=== PATIENT | male | born 1960 | race Hispanic/Latino ===

== ENCOUNTER 2017-07-06 20:35 | Inpatient (IN) | payer MEDICARE ==
[~2017-07-06 20:35] MED LIST: Iopamidol 370 76% 50 ML VIAL FS ONE
--- OUTSIDE RECORDS SUMMARY | 2017-07-06 20:38 | XMS | Clinical Summary ---
:1960 Author Organization [facility] Address [address] [place] [address] Phone Care Team Providers Name Role Phone , Primary Care Provider Unavailable Allergies No Known Allergies Current Medications Prescription Sig. Disp. Refills Start Date End Date Status aspirin 81 MG EC tablet Take 81 mg by mouth Active daily. carvedilol (COREG) 25 MG Take 25 mg by mouth Active tablet 2 (two) times daily with breakfast and dinner. omega-3 fatty Take by mouth. Active acids-vitamin E 1,000 mg Cap amLODIPine (NORVASC) 5 Take 5 mg by mouth Active MG tablet daily. prasugrel (EFFIENT) 10 Take 10 mg by mouth Active mg Tab tablet daily. omeprazole (PRILOSEC) 20 Take 20 mg by mouth Active MG capsule daily. fLUoxetine (PROZAC) 20 Take 20 mg by mouth Active MG capsule daily. colesevelam (WELCHOL) Take 1,875 mg by Active 625 mg tablet mouth 2 (two) times daily with breakfast and dinner. ezetimibe-simvastatin Take 1 tablet by Active (VYTORIN) 10-10 mg per mouth nightly. tablet VIT#96/FERROUS Take 1 tablet by Active FUM/FA ( VITAMIN mouth daily. W/IRON-FOLATE) 27 mg iron- 800 mcg Tab Active Problems Not on file Social History Tobacco Use Types Packs/Day Years Used Date Never Assessed Sex Assigned at Date Recorded Not on file Last Filed Vital Signs Not on file Plan of Treatment Not on file Results Not on filefrom Last 3 Months
[2017-07-06] MEDS ORDERED: Fentanyl 100 MCG/2 ML VIAL ONE ×3 (21:09→23:21)
[2017-07-06 21:31] LABS: #Eosinphils 0.1 thou/uL (0.0-0.7); #Lymphocytes 1.5 thou/uL (1.20-3.40); #Monocytes 0.4 thou/uL (0.11-0.59); #Neutrophils 4.6 thou/uL (1.40-6.50); %Basophils 0.4 % (0.0-1.0); %Eosinophils 2.1 % (0.0-10.0); %Lymphocytes 21.8 % (21.0-51.0); %Monocytes 5.9 % (0.0-10.0); Hematocrit 38.2 % (42.0-52.0); Mean Platelet Volume 8.1 fL (7.4-10.4); Red Blood Cell (RBC) Count 4.05 mill/uL (4.70-6.10); White Blood Cell (WBC) Count 6.6 thou/uL (4.8-10.8)
[2017-07-06 21:38] LABS: PTT 36.8 SEC (22.9-36.1); Prothrombin Time 14.5 SEC (12.0-14.7)
[2017-07-06 21:50] LABS: Lactic Acid - Sepsis 1.6 mmol/L (0.5-2.2)
[2017-07-06 21:53] LABS: ALT (SGPT) 71 U/L (8-55); AST (SGOT) 40 U/L (5-34); Alkaline Phosphatase 270 U/L (40-150); Anion Gap 21 mmol/L (10-20); BUN (Urea Nitrogen) 23 mg/dL (8.4-25.7); Bilirubin, Total 0.7 mg/dL (0.2-1.2); Calc. Creatinine Clearance 0 mL/min (70-130); Calcium 9.8 mg/dL (7.8-10.44); Carbon Dioxide 31 mmol/L (22-29); Chloride 87 mmol/L (98-107); Estimated GFR-MDRD 12; Globulin 5.2 g/dL (2.4-3.5); Protein, Total 9.6 g/dL (6.0-8.3)
--- NOTE | 2017-07-06 23:11 | CT ---
CT ABDOMEN AND PELVIS WITHOUT CONTRAST 07/06/17 HISTORY: Umbilical hernia. COMPARISON: None. FINDINGS: The lung bases are clear. No pericardial effusion. There is a moderate volume free fluid in the pelv is. There is a small bowel containing right ventral hernia adjacent to the umbilicus. This causes a proximal small bowel obstruction. The proximal small bowel loops are dilated to just under 3 cm. Moderate diverticular disease of the sigmoid colon without active inflammation. The appendix is visu alized and is normal. Moderate vascular plaque throughout the aortoiliac system. Kidneys are atrophi c suggesting chronic renal disease. Prior cholecystectomy changes. Moderate thickening of the gastric antrum and pylorus. The pancreas i s unremarkable. IMPRESSION: 1. Small bowel containing ventral hernia just to the right side and craniad to the umbilicus ca using a mild proximal small bowel obstruction. 2. Moderate ascites may be sequela of renal disease or portal hypertension as there is mild spl enomegaly. Transudation of fluid from breakdown of small bowel wall is also in the differential thou gh felt less likely. Recommend correlation with the patient's symptomatology. Surgical consultation is advised. 3. The ingested contrast does not progress beyond the level of the paraumbilical hernia. POS: [facility]
[2017-07-07] MEDS ORDERED: Bupivacaine/Epinephrine 0.25% 30 ML VIAL ONE (00:08)
[2017-07-07] MEDS ORDERED: HumaLOG 300 UNITS/3 ML VIAL SC PRN (00:34)
[2017-07-07] MEDS ORDERED: Dextrose 5% in Water 1,000 ML IV PRN (00:34)
[2017-07-07] MEDS ORDERED: Dextrose 50% Abboject 50 ML SYRINGE SLOW IVP PRN (00:34)
[2017-07-07] MEDS ORDERED: Fentanyl 100 MCG/2 ML VIAL ONE (00:35)
[2017-07-07] MEDS ORDERED: PHENYLEPHRINE-NS 100 MCG/ML 10 ML SYRINGE ONE (00:59)
[2017-07-07] MEDS ORDERED: Ketorolac Tromethamine 30 MG/ML VIAL ONE (00:59)
[2017-07-07] MEDS ORDERED: Ondansetron HCl/PF 4 MG/2 ML Vial ONE (00:59)
[2017-07-07] MEDS ORDERED: Lidocaine 2% MPF 10 ML AMP (For Epidural Use) ONE (00:59)
[2017-07-07] MEDS ORDERED: Propofol 200 MG/20 ML VIAL ONE (00:59)
[2017-07-07] MEDS ORDERED: ePHEDrine/0.9% NaCl/PF SYRINGE 50 mg/10 ml ONE (00:59)
[2017-07-07] MEDS ORDERED: Succinylcholine Chloride 20 MG/ML 10 ml SYRINGE FS ONE (00:59)
--- NOTE | 2017-07-07 02:12 | HP ---
DATE OF ADMISSION: 07/07/2017 HISTORY OF PRESENT ILLNESS: This is a 56-year-old man with a history of end-stage renal disease on hemodialysis. The patient had a preexisting umbilical hernia, which has been there for several year s. This hernia is usually reducible by the patient, however, approximately 6 to 7 hours ago, the pa tient was helping a friend with a move, might have lifted some weight and soon after felt some pain in his abdomen. This pain is now associated with a nonreducible hernia. After multiple attempts by the patient, he was brought to the emergency department by his . He is complaining of severe a bdominal pain. He received intravenous analgesics by the emergency room physician who attempted to reduce the hernia again without success. At the time of my evaluation, the patient remains awake an d alert. He is complaining about 6/10 abdominal pain, just received some fentanyl. CT scan of the abdomen and pelvis was obtained with oral contrast, which reveals an incarcerated hernia at the leve l of the umbilicus. The patient denies any nausea or vomiting. He denies any fevers or chills. He does not recall the last time he passed gas. PAST MEDICAL HISTORY: Significant for type 2 diabetes mellitus; coronary arterial disease; peripher al vascular disease; end-stage renal disease on dialysis Saturday, , and Saturday; essential hypertension; diabetic neuropathy, and liver cirrhosis. PAST SURGICAL HISTORY: Significant for right midfoot amputation and left foot digital amputation. Other surgical history includes laparoscopic cholecystectomy in 1994, right arm AV fistula for dialy sis. Cardiac catheterization with the placement of 2 stents in 2011 as well as a defibrillator impl antation in 2014. He also had transjugular right heart catheterization with the endomyocardial biop sy in 2016 as well as a transjugular liver biopsy in 2016. SOCIAL HISTORY: The patient is and disabled. He lives at home with his . He has a rem ote history of alcohol abuse. Does not indulge currently. Denies any cigarette smoking or illicit drug abuse. CURRENT MEDICATIONS: Includes carvedilol 25 mg p.o. b.i.d., omega-3 fatty acid 2000 mg p.o. b.i.d., digoxin 0.125 mg every other day, aspirin 81 mg p.o. daily, amlodipine 10 mg p.o. daily, omeprazole 20 mg p.o. daily, cinnamon 1000 mg p.o. b.i.d., losartan 50 mg p.o. daily, and atorvastatin 20 mg p .o. daily. ALLERGIES: ANCEF, ZITHROMAX and LISINOPRIL. REVIEW OF SYSTEMS: Ten-point review of systems essentially unremarkable except for as stated in pas t medical history and chief complaint. PHYSICAL EXAMINATION: GENERAL: This reveals a 56-year-old normally developed man, who is otherwise coherent and interacti ve, appears stated age. The patient is alert and oriented x3, appears to be in moderate acute distr ess secondary to abdominal pain. He did have a bout of episodic bilious emesis during this evaluati on. VITAL SIGNS: Include blood pressure 135/60, pulse is 65, respirations 16, oxygen saturation is 100% on room air. HEENT: Reveals normocephalic and atraumatic. Pupils are equal, round, and reactive to light and ac commodation. Extraocular muscles are intact bilaterally. He has no sclerae icterus present. Oral mucosa is pink and moist. No lesions are noted. NECK: Supple. No palpable lymphadenopathy or thyromegaly present. HEART: Reveals regular rate with a 2/6 systolic murmur auscultated in the left sternal border. LUNGS: Clear to auscultation bilaterally. Breathing is regular and unlabored. ABDOMEN: Soft, moderately distended. He has 5 x 7 cm nonreducible bulge right lateral to the umbil icus. This is exclusively tender even with slight manipulation. There is erythema of the overlying skin present. No gross peritoneal signs noted. Liver and spleen are nonpalpable below costal jayesh ins. EXTREMITIES: Reveal 2+ radial and pedal pulses bilaterally. Healed right midfoot and left foot dis devi amputation wounds noted. Right arm AV fistula has a palpable thrill. NEUROLOGIC: Reveals no focal deficits present. LABORATORY FINDINGS: Today includes a CBC with 6600 white blood cells, hemoglobin 12.5, hematocrit is 38.2, platelet count is 164,000. PTT and INR noted at 36.8 seconds and 1.1 respectively. Metabo lic profile: Sodium 134, potassium is 4.6, chloride is 87, BUN 23, creatinine is 5.17, glucose 182. Lactic acid 1.6, AST and ALT marginally elevated at 40 and 71 respectively. Alkaline phosphatase is also elevated at 270. I have personally reviewed the CT scan of the abdomen and pelvis, which re veals an incarcerated umbilical hernia with entrapment of a short segment of small bowel. The oral contrast does not pass the hernia site. Also noted is abdominal ascites. IMPRESSION: Acute incarcerated umbilical hernia with small-bowel obstruction. Recommendation is ur gent umbilical herniorrhaphy. I have advised the patient and his of the above findings and rec ommendations. I have also advised them of the risks and benefits of the proposed surgery. Risks in clude, but not limited to bleeding, infection, injury to bowel or surrounding structures. The patie nt and his understand that there is possibility of small bowel resection if the incarcerated sm all bowel is strangulated, given it has been over 6 hours since the acute incarceration. The patient and his indicated understanding of information given. I answered their questions. The patient has granted consent for this admission and surgical intervention in the presence of his nurse.
[2017-07-07] MEDS ORDERED: Promethazine HCl 25 MG/ML VIAL SLOW IVP PRN (02:21)
[2017-07-07] MEDS ORDERED: Morphine Sulfate 2 MG/ML SYRINGE SLOW IVP PRN (02:21)
[2017-07-07] MEDS ORDERED: Ondansetron HCl/PF 4 MG/2 ML Vial IVP PRN (02:21)
[2017-07-07] MEDS ORDERED: Promethazine HCl 25 MG/ML VIAL IM PRN (02:21)
[2017-07-07] MEDS ORDERED: Ibuprofen 600 MG TAB PO PRN (03:03)
[2017-07-07] MEDS ORDERED: traMADol HCl 50 MG TAB PO PRN (03:03)
[2017-07-07 05:31] VITALS: BMI 28.8
--- NOTE | 2017-07-07 07:25 | OP ---
DATE OF OPERATION: 07/06/2017 PREOPERATIVE DIAGNOSIS: Acute incarcerated umbilical hernia with small-bowel obstruction. POSTOPERATIVE DIAGNOSIS: Acute incarcerated umbilical hernia with small-bowel obstruction. SURGEON: Dr. Carlos Rojas. ANESTHESIA: General endotracheal. ESTIMATED BLOOD LOSS: 10 mL. FLUIDS GIVEN: 400 mL crystalloids. SPONGE AND INSTRUMENT COUNT: Certified as correct x2. COMPLICATIONS: None apparent at time of operation. OPERATIONS PERFORMED: Repair of incarcerated umbilical hernia with 11.4 x 11.[address] m esh patch. INDICATIONS FOR OPERATION: This is a 56-year-old man with history of end-stage renal disease on opal lysis, diabetes mellitus, and previously reducible umbilical hernia. The patient was helping friend to move heavy objects today when he suddenly felt abdominal pain associated with nonreducible umbil ical hernia. After multiple attempts to reduce this without success, the patient presented to the e mergency department. He was given IV fentanyl and the emergency medicine physician attempted multip le times to reduce the hernia again without success. I was asked to evaluate the patient. A CT sca n of the abdomen and pelvis revealed an incarcerated umbilical hernia with trapped small bowel. Ora l contrast did not pass through the hernia. The patient was brought to the operating room urgently for umbilical hernia repair. FINDINGS: Consistent with incarcerated, but not strangulated umbilical hernia. An 8 cm segment of small bowel was entrapped into the large hernia sac over a small hernia neck. DESCRIPTION OF OPERATION: Informed consent obtained from the patient who was brought to the operati ng room and placed in supine position. Following general anesthesia, a Gay catheter was inserted and placed to bedside drain. Abdomen is sterilely prepped and draped in the usual fashion. A curvi linear infraumbilical incision is made using a 15 scalpel. The incision was carried down to the lev el of the fascia. This was achieved using cautery with good hemostasis. The large hernia sac was d issected free from surrounding structures down to the level of viable fascia. The umbilical stalk w as then dissected off the hernia sac. Care was taken to avoid inadvertent injury to bowel once the umbilical stalk was lifted off the hernia sac. The hernia sac was then opened and a 8 cm of incarce rated small bowel was encountered initially with a bowel appeared dusky, but once freed within 3 min utes of opening of the hernia sac. There was good peristalsis and the bowel was now pink. This was then reduced into the peritoneal cavity. Total 100 mL of straw-colored ascites was evacuated from the peritoneal cavity. The hernia sac was then circumferentially excised from [place] fascia and pas sed off the operative field to Pathology. We then brought into the operative field. An 11.4 x 11.[address] patch, which was secured to the [place] fascia circumferentially using inte rrupted sutures of 0 Prolene with 2 cm overlay. The fascia was then approximated in midline using i nterrupted sutures of 0 Prolene. Subcutaneous tissues were irrigated clear with saline, perfected h emostasis using thermocautery. The umbilical stalk was reattached to the [place] fascia using interr upted sutures of 3-0 Vicryl. Skin incision was then closed using a running stitch of 3-0 Monocryl s uture in subcuticular fashion. Dermabond was applied over the closure. The patient tolerated the o peration without any apparent complication and was returned to the recovery room in satisfactory con dition.
[2017-07-07] MEDS: Sodium Chloride 0.9% 1,000 ML IV SCH (07:55)
--- NOTE | 2017-07-07 10:12 | RAD ---
CHEST 1 VIEW: Date: 07/07/17 HISTORY: Chest and abdomen pain. COMPARISON: 03/02/09. FINDINGS: Cardiac silhouette is magnified by projection. Shallow inspiration accentuates pulmonary markings. M ediastinum is midline with aortic calcification and a single lead left subclavian cardiac electronic device. No lobar consolidation or pneumothorax are apparent. There are degenerative changes of each shoulder. IMPRESSION: Atherosclerosis. POS: [facility]
[2017-07-07] MEDS ORDERED: Amlodipine 10 MG TAB PO SCH (12:45)
[2017-07-07] MEDS ORDERED: Carvedilol 25 MG TAB PO SCH (12:45)
[2017-07-07] MEDS: traMADol HCl 50 MG TAB PO PRN ×2 (13:19→21:51)
[2017-07-07] MEDS ORDERED: Aspirin 81 mg Enteric Coated Tablet PO SCH (21:00)
[2017-07-07] MEDS ORDERED: Atorvastatin Calcium 20 MG TAB PO SCH (21:00)
[2017-07-07] MEDS: Carvedilol 25 MG TAB PO SCH (21:51)
[2017-07-08] MEDS: Sodium Chloride 0.9% 1,000 ML IV SCH (07:57)
[2017-07-08] MEDS ORDERED: Losartan 25 MG TAB PO SCH (09:00)
[2017-07-08] MEDS ORDERED: Amlodipine 10 MG TAB PO SCH (09:00)
[2017-07-08] MEDS ORDERED: Digoxin 0.125 MG TAB PO SCH (09:00)
[2017-07-08] MEDS: Carvedilol 25 MG TAB PO SCH (12:27)
[2017-07-08] MEDS: traMADol HCl 50 MG TAB PO PRN (12:58)
[2017-07-08 17:09] VITALS: BP 128/68; TEMP 97.8
--- NOTE | 2017-08-10 15:26 | EKG ---
Test Reason : Blood Pressure : / mmHG Vent. Rate : 064 BPM Atrial Rate : 064 BPM P-R Int : 188 ms QRS Dur : 104 ms QT Int : 410 ms P-R-T Axes : 011 007 070 degrees QTc Int : 422 ms Normal sinus rhythm Left ventricular hypertrophy with repolarization abnormality Abnormal ECG Confirmed by SHARI HOLLOWAY D.O. ([id number]), technical writer and editor KIEL COELLO ([id number]) on 08/10/2017 3:25:57 PM Referred By: Confirmed By:SHARI HOLLOWAY D.O.
== END 2017-07-08 17:20 | disposition home or self-care (01) | DRG 353 ==
LOC: ERS 20:35 → SURG B 07-07 00:50
PROVIDERS: ADMIT Surgery; ATTEND Surgery
PROC: 0WUF0JZ Supplement Abdominal Wall with Synthetic Substitute, Open Approach (ICD-10-PCS; principal; 2017-07-07)
PROC: 0W9G0ZZ Drainage of Peritoneal Cavity, Open Approach (ICD-10-PCS; 2017-07-07)
DX: K42.0 Umbilical hernia with obstruction, without gangrene (principal); N18.6 End stage renal disease; R18.8 Other ascites; I12.0 Hypertensive chronic kidney disease with stage 5 chronic kidney disease or end stage renal disease; I25.10 Atherosclerotic heart disease of native coronary artery without angina pectoris; E11.22 Type 2 diabetes mellitus with diabetic chronic kidney disease; Z99.2 Dependence on renal dialysis; E11.40 Type 2 diabetes mellitus with diabetic neuropathy, unspecified; I73.9 Peripheral vascular disease, unspecified; K74.60 Unspecified cirrhosis of liver
CPT/HCPCS: 36416; 71010; 74176; 80053; 83605; 85025; 85610; 85730; 88302; 93005; 96374; 96376; J1885; J2001; J2405; J2704; J3010; J3370

== ENCOUNTER 2017-07-13 05:49 | Emergency (ER) | payer MEDICARE ==
--- OUTSIDE RECORDS SUMMARY | 2017-07-13 05:51 | XMS | Clinical Summary ---
:1960 Author Organization [facility] Address [address] [place] [address] Phone Care Team Providers Name Role Phone [...]
== END 2017-07-13 06:37 | disposition home or self-care (01) ==
LOC: ERS 05:49
DX: K91.840 Postprocedural hemorrhage of a digestive system organ or structure following a digestive system procedure (principal); I13.2 Hypertensive heart and chronic kidney disease with heart failure and with stage 5 chronic kidney disease, or end stage renal disease; E11.22 Type 2 diabetes mellitus with diabetic chronic kidney disease; N18.6 End stage renal disease; I50.9 Heart failure, unspecified; Z99.2 Dependence on renal dialysis; Z79.899 Other long term (current) drug therapy; Z79.82 Long term (current) use of aspirin
CPT/HCPCS: 99283

== ENCOUNTER 2017-07-16 14:00 | Emergency (ER) | payer MEDICARE ==
[2017-07-16 15:46] LABS: #Eosinphils 0.1 thou/uL (0.0-0.7); #Lymphocytes 0.7 thou/uL (1.20-3.40); #Monocytes 0.4 thou/uL (0.11-0.59); #Neutrophils 3.3 thou/uL (1.40-6.50); %Basophils 1.1 % (0.0-1.0); %Eosinophils 1.6 % (0.0-10.0); %Monocytes 8.5 % (0.0-10.0); Hematocrit 33.4 % (42.0-52.0); Mean Platelet Volume 7.5 fL (7.4-10.4); Red Blood Cell (RBC) Count 3.55 mill/uL (4.70-6.10); White Blood Cell (WBC) Count 4.4 thou/uL (4.8-10.8)
--- OUTSIDE RECORDS SUMMARY | 2017-07-16 15:54 | XMS | Clinical Summary ---
:1960 Author Organization [facility] Address [address] [place] [address] Phone Care Team Providers Name Role Phone [...]
[2017-07-16 16:05] LABS: Lactic Acid - Sepsis 1.1 mmol/L (0.5-2.2)
[2017-07-16 16:07] LABS: Anion Gap 13 mmol/L (10-20); BUN (Urea Nitrogen) 22 mg/dL (8.4-25.7); Calc. Creatinine Clearance 0 mL/min (70-130); Calcium 8.8 mg/dL (7.8-10.44); Carbon Dioxide 36 mmol/L (22-29); Chloride 92 mmol/L (98-107); Estimated GFR-MDRD 11
[2017-07-16] MEDS ORDERED: Fentanyl 100 MCG/2 ML VIAL ONE (16:07)
[2017-07-16] MEDS ORDERED: Lorazepam 2 MG/ML VIAL ONE (16:07)
--- NOTE | 2017-07-16 22:03 | HP ---
HISTORY OF PRESENT ILLNESS: Blue Vaughn is a 56-year-old male patient, who I saw in 2012, establis taylor a right arm fistula for dialysis. The patient apparently reported in the emergency room at mid night to 01:00 and underwent, on 07/07/2017 at 0200 hours, incarcerated umbilical hernia repair. Ap parently, there was small bowel involved. Once released, the bowel regained viability and resection was not necessary. The patient underwent mesh repair of his hernia with preperitoneal reinforcemen t of the fascial closure. The patient developed some swelling about his wound. He presented to his primary care doctor who was concerned about recurrent hernia. The patient then was sent to the [facility] to follow up with Dr. Rojas, who is out of town on a mission trip. The patient was to be seen at apparently 02:00 in the afternoon, but they more concerned about the appearance of the supr aumbilical wound and presented to the emergency room. He was evaluated by the emergency room physic frances, who attempted reduction of a possible hernia. I was asked to see him. The patient reports that he is not having any nausea or vomiting, he has not had any fever or chills . Bowel function is normal. He has end-stage renal disease on maintenance dialysis using a right a rm fistula. He has issues regarding cirrhosis. LABORATORY DATA: Hemoglobin 11, white count 4. Basic metabolic profile unremarkable except reflect ing changes of end-stage renal disease on maintenance dialysis. PHYSICAL EXAMINATION: GENERAL: The patient is in no distress. LUNGS: Clear to auscultation. CARDIAC: Regular rate and rhythm without murmur or gallop. ABDOMEN: Soft, nondistended, non-tympanitic. Infraumbilical transverse curvilinear scar well heale d. No evidence of infection. There is some fullness in the supraumbilical area approximately 8 cm in diameter consistent with a seroma. There are no skin changes to suggest an infection. There is no cellulitis. ASSESSMENT AND PLAN: Postoperative seroma. We will observe this. At this time, I do not think binh ging is necessary. I would treat this clinically. There are no clinical signs of obstruction. Thi s seroma most likely will resolve and I would not recommend aspirating it. I would recommend the pa darion to follow up with Dr. Rojas per his schedule appointment time and if he develops problems he c an be seen in my office sooner. At this point, he can be discharged home to resume his home medicat ions and follow up in the trauma clinic on 07/23/2017 and see me sooner if necessary.
== END 2017-07-16 17:40 | disposition home or self-care (01) ==
LOC: ERS 14:00
DX: K91.872 Postprocedural seroma of a digestive system organ or structure following a digestive system procedure (principal); E11.22 Type 2 diabetes mellitus with diabetic chronic kidney disease; N18.6 End stage renal disease; I50.9 Heart failure, unspecified; Z79.899 Other long term (current) drug therapy; Z79.82 Long term (current) use of aspirin
CPT/HCPCS: 36415; 80048; 83605; 85025; 96374; 96375; J2060; J3010

== ENCOUNTER → 2017-07-23 | Day surgery (SDC) | payer MEDICARE ==
[2017-07-22 16:44] VITALS: BMI 30.7
--- NOTE | 2017-07-22 22:03 | HP ---
HISTORY OF PRESENT ILLNESS: Blue Vaughn, 56-year-old male patient seen for an incarcerated umbilic al hernia with Dr. Rojas on 07/07/2017 and undergoing open repair utilizing mesh 11.4 x 11[address] mesh patch. Patient initially seen in the emergency room with 2-3 days postoperatively suspe cted to have recurrent hernia with attempted reduction which was not possible. I saw him after that and he was seen in the office, recently had 60 mL of fluid aspirated from seroma. He was leaking fro m the lower right corner. He reports today and has recurrence of the seroma. Plan is to return to [facility] operating [facility], open the wound, wash this out and place a drain. The drainage was serous in [facility] last visit. It was not cultured. He has a history of cirrhosis. ALLERGIES: AZITHROMYCIN and LISINOPRIL. TOBACCO: None. ALCOHOL: None. PAST MEDICAL HISTORY: Diabetes mellitus type 2, coronary artery disease, PVD, end-stage renal diseas e, on dialysis, in fact I had provided his dialysis access fistula in the past; hypertension, diabeti c neuropathy, liver cirrhosis. He is followed by Dr. Kushal Arthur, Nephrology. I talked to Nephro luis enrique last week regarding administration of vancomycin and this has not been done today. They state erika bullock will do this in the morning. After he is finished with his dialysis in the morning, he will repo rt for surgery as an outpatient n.p.o. PAST MEDICAL HISTORY: Alcohol abuse. TOBACCO: None. MEDICATIONS: Carvedilol 25 b.i.d., omega 3 fatty acids 200 b.i.d., digoxin 0.125 mg every other day, aspirin 81 mg, amlodipine 10 mg a day, omeprazole 20 mg a day, cinnamon daily, losartan 50 mg daily, and atorvastatin 20 mg a day. PHYSICAL EXAMINATION: VITAL SIGNS: 220 pounds, 71 kg, 37.79 BMI, 124/60, 71, temperature 97.7 degrees. HEENT: Unremarkable. LUNGS: Clear to auscultation. CARDIAC: Regular rate and rhythm without murmur or gallop. ABDOMEN: Soft. He has a curvilinear transversely oriented infraumbilical wound. There is a seroma reaccumulation superiorly. There is no redness or signs of infection. ASSESSMENT AND PLAN: Seroma in a patient with cirrhosis, end-stage renal disease on maintenance dial ysis. We will plan irrigation of wound and placement of drain. He understands the risks and benefit s.
[~2017-07-23] MED LIST changes: +Bupivacaine/Epinephrine 0.25% 30 ML VIAL ONE; +Diprivan 20 ML ONE; +Fentanyl 100 MCG/2 ML VIAL ONE; -Iopamidol 370 76% 50 ML VIAL FS ONE; +Lidocaine 2% w/Epinephrine 1:200K 20 ML VIAL ONE; +Midazolam HCl 2 mg/2 ml Vial ONE; +Propofol 200 MG/20 ML VIAL ONE
[2017-07-23 11:37] LABS: Hematocrit 34.4 % (42.0-52.0); Mean Platelet Volume 8.4 fL (7.4-10.4); Red Blood Cell (RBC) Count 3.68 mill/uL (4.70-6.10); White Blood Cell (WBC) Count 5.9 thou/uL (4.8-10.8)
[2017-07-23 11:56] LABS: Band 4 % (5-11); Neutrophil 64 % (42-75)
[2017-07-23 12:13] LABS: Anion Gap 17 mmol/L (10-20); BUN (Urea Nitrogen) 17 mg/dL (8.4-25.7); Calc. Creatinine Clearance 23 mL/min (70-130); Calcium 8.7 mg/dL (7.8-10.44); Carbon Dioxide 29 mmol/L (22-29); Chloride 94 mmol/L (98-107); Estimated GFR-MDRD 12
--- NOTE | 2017-07-23 18:06 | OP ---
DATE OF SURGERY: 09/22/2016 PREOPERATIVE DIAGNOSES: Abdominal wall seroma, status post incisional hernia repair (postoperative), end-stage renal disease, cirrhosis. PROCEDURES: Evacuation of seroma cavity, pulse irrigation, placement of a #19-Gold MARY ELLEN drain. SURGEON: Dr. Kushal Becerra ANESTHESIA: TIVA. Local of 0.25% Marcaine with epinephrine, 30 mL mixed with 1% Xylocaine with epin ephrine 30 mL. PROCEDURE IN DETAIL: Patient was taken to the operating room where under intravenous sedation, abdom en was prepared with chloraprep, draped in routine fashion. Local anesthetic infiltrated into skin a nd subcutaneous tissue about the operative site. Incision made through the lower old incision and wo und opened. Some cloudy material drained and cultured this. The wound was then pulse irrigated, chava cuated, removing particulate matter, no hematoma. A #19 Gold MARY ELLEN drain placed through a stab incision and secured with 3-0 nylon suture. Biopatch, Mastisol, and Op-Site applied. Subcutaneous tissues a pproximated with 3-0 Monocryl, skin with subdermal 4-0 Monocryl, and DermaGlue applied. The patient tolerated the procedure well.
== END ==
LOC: SDC 10:34
PROVIDERS: ATTEND Specialist
PROC: 0H97X0Z Drainage of Abdomen Skin with Drainage Device, External Approach (ICD-10-PCS; principal; 2017-07-23)
DX: T88.8XXA Other specified complications of surgical and medical care, not elsewhere classified, initial encounter (principal); E11.22 Type 2 diabetes mellitus with diabetic chronic kidney disease; I50.9 Heart failure, unspecified; I13.2 Hypertensive heart and chronic kidney disease with heart failure and with stage 5 chronic kidney disease, or end stage renal disease; N18.6 End stage renal disease; I25.10 Atherosclerotic heart disease of native coronary artery without angina pectoris; E11.51 Type 2 diabetes mellitus with diabetic peripheral angiopathy without gangrene; E11.40 Type 2 diabetes mellitus with diabetic neuropathy, unspecified; K74.60 Unspecified cirrhosis of liver; D63.1 Anemia in chronic kidney disease; K21.9 Gastro-esophageal reflux disease without esophagitis; Z79.82 Long term (current) use of aspirin; Z79.899 Other long term (current) drug therapy; Z99.2 Dependence on renal dialysis; Z88.1 Allergy status to other antibiotic agents; Z88.8 Allergy status to other drugs, medicaments and biological substances; Z98.42 Cataract extraction status, left eye; Z98.41 Cataract extraction status, right eye; Z95.818 Presence of other cardiac implants and grafts; Z95.810 Presence of automatic (implantable) cardiac defibrillator; Z96.1 Presence of intraocular lens; Z90.49 Acquired absence of other specified parts of digestive tract; Z89.422 Acquired absence of other left toe(s); Z89.421 Acquired absence of other right toe(s); Z98.890 Other specified postprocedural states; Z87.891 Personal history of nicotine dependence
CPT/HCPCS: 36415; 80048; 85025; 87070; 87077; 87186; 87205; J2250; J2704; J3010

== ENCOUNTER 2017-10-31 11:33 | Inpatient (IN) | payer MEDICARE ==
[2017-10-31 12:57] VITALS: BMI 29.8
[2017-10-31] MEDS ORDERED: traMADol HCl 50 MG TAB PO PRN (14:11)
[2017-10-31] MEDS ORDERED: Docusate 100 MG CAP PO PRN (14:11)
[2017-10-31] MEDS ORDERED: Dextrose 5% in Water 1,000 ML IV PRN (14:16)
[2017-10-31] MEDS ORDERED: HumaLOG 300 UNITS/3 ML VIAL SC PRN (14:16)
[2017-10-31] MEDS ORDERED: Dextrose 50% Abboject 50 ML SYRINGE SLOW IVP PRN (14:16)
[2017-10-31] MEDS ORDERED: hydrALAZINE 20 MG/ML VIAL SLOW IVP PRN (14:16)
[2017-10-31] MEDS ORDERED: HYDROcodone/Acetaminophen 10/325 mg Tablet PO PRN (14:16)
[2017-10-31] MEDS: traMADol HCl 50 MG TAB PO PRN (14:56)
[2017-10-31] MEDS: Aspirin 81 mg Enteric Coated Tablet PO SCH (20:48)
[2017-10-31] MEDS: Atorvastatin Calcium 20 MG TAB PO SCH (20:48)
[2017-10-31] MEDS: Fish Oil 1,000 MG CAP PO SCH (20:48)
[2017-10-31] MEDS: Carvedilol 25 MG TAB PO SCH (20:48)
[2017-10-31] MEDS: HYDROcodone/Acetaminophen 10/325 mg Tablet PO PRN (20:55)
--- NOTE | 2017-10-31 21:22 | HP ---
HISTORY OF PRESENT ILLNESS: A 57-year-old male patient transferred from [facility] today. The patient has been there for 3 days complaining of right index finger dry gangre ne and hand pain. He has decreased range of motion. 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 Ulnar ar maura is occluded distally. I discussed with Dr. Krishna Tee who was able to follow up his arteriogra ms and fistulograms at [facility], we discussed them; and in addition, I have talked to the radiol ogist who performed the interventional procedure at [facility]. Plan [facility] and plan a DRIL procedure in right arm to restore circulation and preserve his right arm fi stula. He has excellent functioning cephalic vein fistula in right arm. He has dry gangrene of his right index finger and this will be monitored closely and dealt with at later time once the hand is r evascularized. ALLERGIES: AZITHROMYCIN, CEFAZOLIN, LISINOPRIL. TOBACCO: None. ALCOHOL: None. MEDICATIONS: Amlodipine 10 mg a day, cinnamon b.i.d., carvedilol 25 b.i.d., atorvastatin 20 mg at be dtime, aspirin 81 mg a day, omega-3 fish oil daily, losartan 50 mg a day, Colace b.i.d., digoxin 0.12 5 mg every 2 days, tramadol as needed for pain, omeprazole 20 mg b.i.d. PAST SURGICAL HISTORY: 07/07/2017, Dr. Glezju weekend coverage, acute incarcerated umbilical hernia w ith small-bowel obstruction requiring repair using mesh. He developed a seroma 07/23/2017 that I chava cuated and closed his wound with a drain. This wound has since healed. Right arm fistula in proxima l radial artery placed in the past, inflow proximal radial artery and outflow cephalic vein. PAST MEDICAL HISTORY: Diabetes mellitus type 2, off diabetic medications since he started dialysis; coronary artery disease; PVD; end-stage renal disease, on dialysis; diabetic neuropathy; cirrhosis. Dialyzes Saturday, Saturday, and Saturday; followed Dr. Kushal Arthur. PHYSICAL EXAMINATION: VITAL SIGNS: 5 feet 11 inches, 214 pounds, 29 BMI. 98.4 degrees, 66, 18, 125/58. EARS, EYES, NOSE, AND THROAT: Unremarkable. LUNGS: Clear to auscultation. CARDIAC: Regular rate and rhythm without murmur or gallop. ABDOMEN: Soft, nontender. EXTREMITIES: Unremarkable. Right arm fistula. Right index finger dry gangrene. Diminished mobilit y in right hand. LABORATORY DATA: Coagulation studies on 07/16/2017, normal. ASSESSMENT AND PLAN: 1. End-stage renal disease with arterial steal secondary to arteriosclerotic disease and occluded ul shanna artery in right arm with inflow cephalic vein fistula in right upper arm from the proximal radial artery. We will plan saphenous vein harvest from one of his thighs and a DRIL procedure. He unders tands the risk and benefits and consents. 2. Dry gangrene in right index finger. Address and follow after revascularization of the hand. 3. End-stage renal disease, on maintenance dialysis. Talk to Dr. Kushal Arthur regarding dialysis early in the morning prior to the surgery. 4. Cirrhosis. Coagulation studies are normal.
[2017-11-01 05:59] LABS: Anion Gap 18 mmol/L (10-20); BUN (Urea Nitrogen) 34 mg/dL (8.4-25.7); Calc. Creatinine Clearance 14 mL/min (70-130); Calcium 8.9 mg/dL (7.8-10.44); Carbon Dioxide 25 mmol/L (22-29); Chloride 92 mmol/L (98-107); Estimated GFR-MDRD 7; Glucose 126 mg/dL (70-105); Sodium 130 mmol/L (136-145)
[2017-11-01 07:35] LABS: Hemoglobin 9.5 g/dL (14.0-18.0); Mean Corpuscular HGB CONC 33.6 g/dL (32.0-36.0); Mean Corpuscular Hemoglobin 30.2 pg (27.0-31.0); Mean Corpuscular Volume 89.6 fl (80.0-94.0); Platelet Count 116 thou/uL (130-400); RBC Distribution Width 12.8 % (11.5-14.5); Red Blood Cell (RBC) Count 3.14 mill/uL (4.70-6.10); White Blood Cell (WBC) Count 6.9 thou/uL (4.8-10.8)
[2017-11-01 08:08] LABS: Band 3 % (5-11); Eosinophils 2 % (0-10); Lymphocytes 16 % (21-51); MDiff Complete? YES; Monocytes 6 % (0-10); Neutrophil 73 % (42-75); PLT Morphology Comment Appears Decreased; Polychromasia SLIGHT = 2-3 cells (100X) (0-2/hpf)
[2017-11-01] MEDS ORDERED: Lidocaine 1% PF 5 ML VIAL ONE (08:36)
[2017-11-01] MEDS ORDERED: Ondansetron HCl/PF 4 MG/2 ML Vial ONE (08:36)
[2017-11-01] MEDS ORDERED: Heparin 10,000 UNITS/ 10 ML VIAL ONE (08:36)
[2017-11-01] MEDS ORDERED: PROPOFOL 200 MG/20 ML VIAL ONE (08:36)
[2017-11-01] MEDS ORDERED: Digoxin 0.125 MG TAB PO SCH (09:00)
[2017-11-01 11:08] LABS: INR-International Normal Ratio 1.1; Prothrombin Time 14.7 SEC (12.0-14.7)
[2017-11-01 11:09] LABS: PTT 46.4 SEC (22.9-36.1)
[2017-11-01] MEDS: Amlodipine 10 MG TAB PO SCH (11:31)
[2017-11-01] MEDS: Fish Oil 1,000 MG CAP PO SCH ×2 (11:31→22:54)
[2017-11-01] MEDS: Losartan 25 MG TAB PO SCH (11:31)
[2017-11-01] MEDS: Carvedilol 25 MG TAB PO SCH ×2 (11:34→22:57)
[2017-11-01] MEDS: traMADol HCl 50 MG TAB PO PRN (11:35)
[2017-11-01] MEDS: CINNAMON BARK 1000 MG PO SCH ×2 (16:14→16:15)
[2017-11-01] MEDS ORDERED: Levofloxacin 500 mg/D5W 100 ml Premix Bag ONE (16:45)
[2017-11-01] MEDS ORDERED: Heparin 5,000 UNITS/ML VIAL ONE (17:37)
[2017-11-01] MEDS ORDERED: Bupivacaine HCl 0.5%/Epinephrine 1:200,000/PF 30 ml Vial ONE (17:37)
[2017-11-01] MEDS ORDERED: Protamine Sulfate 50 MG/5 ML VIAL ONE (17:37)
[2017-11-01] MEDS ORDERED: Fentanyl 250 MCG/5 ML VIAL ONE (18:23)
[2017-11-01] MEDS ORDERED: Phenylephrine HCL 10 MG/ML VIAL ONE (18:40)
[2017-11-01] MEDS ORDERED: PHENYLEPHRINE-NS 100 MCG/ML 10 ML SYRINGE ONE (18:40)
[2017-11-01] MEDS ORDERED: Acetaminophen/Codeine 30-300mg Tablet PO PRN ×2 (19:24)
[2017-11-01] MEDS ORDERED: Ondansetron HCl/PF 4 MG/2 ML Vial IVP PRN (20:20)
[2017-11-01] MEDS ORDERED: Promethazine HCl 25 MG/ML VIAL SLOW IVP PRN (20:20)
[2017-11-01] MEDS ORDERED: Promethazine HCl 25 MG/ML VIAL IM PRN (20:20)
[2017-11-01] MEDS: Atorvastatin Calcium 20 MG TAB PO SCH (22:54)
[2017-11-01] MEDS: Aspirin 81 mg Enteric Coated Tablet PO SCH (22:54)
--- NOTE | 2017-11-02 04:16 | DIS ---
HOSPITALIZATION DIAGNOSES: 1. 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 Previous fistula placed more than 3 years ago, right arm arterial inflow perforating branch antecubital vein, outflow cephalic and basilic vein, retrograde antecubita l vein preserved. The patient accepted transfer to [facility] where he had fistulogram a nd arteriogram. 2. Insulin-dependent diabetes mellitus. 3. Hypertension. 4. Cirrhosis. 5. Gangrene, right index finger. PROCEDURES THIS HOSPITALIZATION: DRIL procedure, right arm using basilic vein. HOSPITAL COURSE: A 57-year-old male on dialysis with the above diagnosis, followed by Dr. Kushal ruffin. The patient was at [facility] with gangrene of his right index f brooke. Fistulogram and arteriogram were performed by Interventional Radiology revealing arterioscler otic occlusion of the ulnar artery and disease of the radial artery with arterial steal and with exce llent outflow of the cephalic vein in upper arm without central circulation problems. The patient wa s transferred to this hospital for intervention. He was admitted, kept overnight, underwent the proc edure described above. The DRIL procedure was able to be performed without using the saphenous vein. I was able to use the basilic vein segment to perform a DRIL procedure in the right arm. The patie nt tolerated the procedure well. He will be discharged home and resume his home medications. Dermab ond and absorbable sutures were used. Local anesthetic was infiltrated. He was given Tylenol No. 3, #40; and Ultram #40, one refill. He is to follow up in my office in approximately 2 weeks. He will follow up with Dr. Norton regarding his right index finger. Resume renal diabetic diet, low sodiu m for his cirrhosis. Follow up as noted. Resume his home medications.
--- NOTE | 2017-11-02 07:11 | OP ---
DATE OF PROCEDURE: 11/01/2017 PREOPERATIVE DIAGNOSES: End-stage renal disease; ischemic right hand with rest pain and gangrene in right index finger with arterial steal syndrome precipitated by arteriosclerotic disease with occlusi on of the ulnar artery; Primary cephalic vein fistula in right upper arm, arterial inflow proximal ra dial artery. PROCEDURE: Distal revascularization interval ligation (DRIL) procedure using basilic vein for distal revascularization. SURGEON: Kushal Becerra MD ANESTHESIA: General, local 0.5% Marcaine with epinephrine, 30 mL mixed with 2% Xylocaine 10 mL DESCRIPTION OF PROCEDURE: The patient was taken to the operating room, where the right upper extremi ty, right thigh, and groin were prepared with ChloraPrep, draped in routine fashion. Incision was ma de first made in the right arm overlying the proximal volar forearm, extending across the antecubital fossa. The patient had a previous AV fistula several years ago, arterial inflow proximal radial art michel, outflow basilic and cephalic vein. Cephalic vein had matured nicely into a fistula. I was able to use his basilic vein for the revascularization. The patient's basilic and cephalic vein in dista l upper arm were dissected free circumferentially, dividing the branch between 4-0 silk ties and clip s. The patient was given 6000 units of heparin intravenously. After adequate circulation time, the brachial artery above the antecubital fossa was dissected free over about a 10 cm length. Arterial i nflow from perforating branch and the antecubital vein was dissected free. A DRIL procedure was perf ormed by dividing these origin of the cephalic vein fistula near the forearm and transposing it to th e brachial artery above the antecubital fossa, clamping the brachial artery, which was arteriosclerot ic at this level, and making a longitudinal arteriotomy sharply, and 2.5 cm anastomosis was made betw een the side brachial artery to end cephalic vein using continuous suture of 6-0 Prolene. Once this was completed, vascular clamps were released and there was excellent flow in the fistula. At this po int, the basilic vein, which had been mobilized at that point was ligated on the upper arm side with 3-0 silk suture. The basilic vein was then anastomosed to the brachial artery, proximal to the end i nflow of the fistula. Vascular clamps were used to control the artery and longitudinal arteriotomy m pete for 2.5 cm and end basilic vein to side brachial artery anastomoses was formed with continuous hargrove ture of 6-0 Prolene. At this point, the clamps were released and there was excellent flow to the patterson d. Due to arterialization of the basilic and cephalic veins, valves were inactive, nonfunctional. T he retrograde antecubital vein had been ligated with 3-0 silk ties and divided. The basilic vein ilia stomosis was slightly redundant and this was redone, taking out the segment and creating an end-to-en d anastomosis with 6-0 Prolene and removing the redundancy. The patient was given 25 mg of protamine . Interval ligation of the brachial artery was performed with a 2-0 silk tie, ligating the brachial artery just beyond the inflow of the AV fistula to prevent siphoning effect. Good Doppler signals we re noted in the wrist and good Doppler signals noted in the distal revascularization and the fistulas . The patient was given 25 mg of protamine. Surgicel was used. Hemostasis was gained with 6-0 Prol piyush. Subcutaneous tissues were approximated with 3-0 Monocryl, skin with subdermal 4-0 Monocryl, and DermaGlue applied. Local anesthetic mixture was infiltrated into the skin and subcutaneous tissue a bout the wound for postoperative pain control. Sterile dressing was applied.
[2017-11-02] MEDS: Losartan 25 MG TAB PO SCH (07:41)
[2017-11-02] MEDS: Fish Oil 1,000 MG CAP PO SCH (07:41)
[2017-11-02] MEDS: HYDROcodone/Acetaminophen 10/325 mg Tablet PO PRN (07:42)
[2017-11-02] MEDS: Amlodipine 10 MG TAB PO SCH (07:42)
[2017-11-02] MEDS: Carvedilol 25 MG TAB PO SCH (07:42)
--- NOTE | 2017-11-02 08:03 | EKG ---
Test Reason : PREOP Blood Pressure : / mmHG Vent. Rate : 068 BPM Atrial Rate : 068 BPM P-R Int : 222 ms QRS Dur : 108 ms QT Int : 388 ms P-R-T Axes : 021 -04 028 degrees QTc Int : 412 ms Sinus rhythm with 1st degree A-V block Nonspecific ST depression Abnormal ECG When compared with ECG of 07-JUL-2017 00:14, OR interval has increased Confirmed by DR. Eliane MARKS ([id number]) on 11/02/2017 8:03:30 AM Referred By: MARY ELLEN Confirmed By:DR. Eliane MARKS
[2017-11-02 08:24] VITALS: BP 136/61; TEMP 97.9
== END 2017-11-02 10:06 | disposition home or self-care (01) | DRG 252 ==
LOC: SURG A 11:33
PROVIDERS: ADMIT Specialist; ATTEND Specialist
PROC: 031709D Bypass Right Brachial Artery to Upper Arm Vein with Autologous Venous Tissue, Open Approach (ICD-10-PCS; principal; 2017-11-01)
PROC: 05BB0ZZ Excision of Right Basilic Vein, Open Approach (ICD-10-PCS; 2017-11-01)
PROC: 5A1D70Z Performance of Urinary Filtration, Intermittent, Less than 6 Hours Per Day (ICD-10-PCS; 2017-11-01)
DX: T82.898A Other specified complication of vascular prosthetic devices, implants and grafts, initial encounter (principal); N18.6 End stage renal disease; E11.22 Type 2 diabetes mellitus with diabetic chronic kidney disease; E11.42 Type 2 diabetes mellitus with diabetic polyneuropathy; I70.268 Atherosclerosis of native arteries of extremities with gangrene, other extremity; I12.0 Hypertensive chronic kidney disease with stage 5 chronic kidney disease or end stage renal disease; K74.60 Unspecified cirrhosis of liver; I25.10 Atherosclerotic heart disease of native coronary artery without angina pectoris; Z99.2 Dependence on renal dialysis; Z88.1 Allergy status to other antibiotic agents; Z88.8 Allergy status to other drugs, medicaments and biological substances; Z79.82 Long term (current) use of aspirin; Z79.899 Other long term (current) drug therapy; Y83.8 Other surgical procedures as the cause of abnormal reaction of the patient, or of later complication, without mention of misadventure at the time of the procedure
CPT/HCPCS: 36415; 36416; 80048; 85025; 85610; 85730; 86850; 86900; 86901; 90935; 93005; 93010; G0257; J0670; J1644; J1956; J2001; J2370; J2405; J2704; J2720; J3010

== ENCOUNTER 2018-03-27 06:46 | Outpatient (CLI) | payer MEDICARE | END 2018-03-27 06:47 | disposition home or self-care (01) | LOC: BICULT 06:46 | PROVIDERS: ATTEND Internal Medicine Gastroenterology | DX: K74.69 Other cirrhosis of liver (principal); N18.6 End stage renal disease; I42.0 Dilated cardiomyopathy; R18.8 Other ascites; R16.1 Splenomegaly, not elsewhere classified; Z99.2 Dependence on renal dialysis | CPT/HCPCS: 76700 ==

== ENCOUNTER 2018-06-12 23:07 | Emergency (ER) | payer MEDICARE | END 2018-06-13 01:08 | disposition home or self-care (01) | LOC: ERS 23:07 | DX: R58 Hemorrhage, not elsewhere classified (principal); I11.0 Hypertensive heart disease with heart failure; I50.9 Heart failure, unspecified; Z79.899 Other long term (current) drug therapy; Z79.891 Long term (current) use of opiate analgesic | CPT/HCPCS: 99283 ==

== ENCOUNTER 2018-08-06 16:06 | Inpatient (IN) | payer MEDICARE ==
--- NOTE | 2018-08-06 16:40 | RAD ---
CHEST ONE VIEW: Comparison: 07-07-17 History: Cough. Fever. FINDINGS: There is a stable left sided single lead defibrillator. Atherosclerosis of the aorta is noted. There is cardiomegaly. The pulmonary vessels and hilum are normal. Costophrenic angles are clear. No mass, no consolidation, no pneumothorax or osseous abnormalities. IMPRESSION: 1. Atherosclerosis. 2. Cardiomegaly. 3. No evidence of congestive heart failure. POS: LESLEY
[2018-08-06 17:01] LABS: #Lymphocytes 0.4 thou/uL (1.20-3.40); #Monocytes 0.4 thou/uL (0.11-0.59); #Neutrophils 5.1 thou/uL (1.40-6.50); %Eosinophils 0.1 % (0.0-10.0); %Lymphocytes 7.4 % (21.0-51.0); %Monocytes 6.4 % (0.0-10.0); Hemoglobin 11.1 g/dL (14.0-18.0); Mean Corpuscular HGB CONC 33.4 g/dL (32.0-36.0); Mean Corpuscular Hemoglobin 31.7 pg (27.0-31.0); Mean Corpuscular Volume 94.9 fL (78.0-98.0); Mean Platelet Volume 9.8 fL (7.4-10.4); Platelet Count 66 thou/uL (130-400); RBC Distribution Width 12.7 % (11.5-14.5); Red Blood Cell (RBC) Count 3.49 mill/uL (4.70-6.10); White Blood Cell (WBC) Count 5.9 thou/uL (4.8-10.8)
[2018-08-06 17:21] LABS: ALT (SGPT) 20 U/L (8-55); AST (SGOT) 20 U/L (5-34); Albumin 4.2 g/dL (3.5-5.0); Alkaline Phosphatase 158 U/L (40-150); Anion Gap 15 mmol/L (10-20); BUN (Urea Nitrogen) 19 mg/dL (8.4-25.7); Bilirubin, Total 0.7 mg/dL (0.2-1.2); CK (CPK) 189 U/L (30-200); CKMB 1.1 ng/mL (0-6.6); Calc. Creatinine Clearance 0 mL/min (70-130); Calcium 9.5 mg/dL (7.8-10.44); Carbon Dioxide 32 mmol/L (22-29); Chloride 93 mmol/L (98-107); Estimated GFR-MDRD 12; Globulin 4.1 g/dL (2.4-3.5); Glucose 144 mg/dL (70-105); Lipase 7 U/L (8-78); Potassium 3.4 mmol/L (3.5-5.1); Protein, Total 8.3 g/dL (6.0-8.3); Sodium 137 mmol/L (136-145)
[2018-08-06] MEDS ORDERED: Acetaminophen 500 MG TAB ONE (19:23)
[2018-08-06 21:39] VITALS: BMI 28.5
[2018-08-07] MEDS ORDERED: traMADol HCl 50 MG TAB PO PRN (02:57)
[2018-08-07] MEDS ORDERED: Docusate 100 MG CAP PO PRN (02:57)
[2018-08-07] MEDS ORDERED: Ondansetron PF 4 MG/2 ML Vial IVP PRN (03:00)
[2018-08-07] MEDS: Acetaminophen 325 MG TAB PO PRN ×2 (03:07→18:35)
[2018-08-07] MEDS ORDERED: LEVOFLOXACIN IVPB PRN (03:16)
[2018-08-07] MEDS ORDERED: VANCOMYCIN IVPB PRN (03:16)
[2018-08-07] MEDS ORDERED: Vancomycin HCl 500 MG in Sodium Chloride 0.9% 100 ML IVPB SCH (03:30)
[2018-08-07] MEDS ORDERED: Vancomycin HCl 1.25 GM in Sodium Chloride 0.9% 250 ML 250 ML IVPB SCH ×3 (03:30→18:00)
[2018-08-07] MEDS ORDERED: HOLD VANCOMYCIN FOR LEVEL >20 FS SCH (03:30)
[2018-08-07] MEDS ORDERED: Vancomycin HCl 750 MG in Sodium Chloride 0.9% 250 ML 250 ML IVPB SCH (03:30)
[2018-08-07] MEDS ORDERED: Vancomycin HCl 1 GM in Premix Bag 1 BAG IVPB SCH (03:30)
[2018-08-07] MEDS ORDERED: Vancomycin HCl 1.75 GM in Sodium Chloride 0.9% 500 ML IVPB SCH (03:30)
[2018-08-07 05:47] LABS: #Lymphocytes 0.5 thou/uL (1.20-3.40); #Monocytes 0.3 thou/uL (0.11-0.59); #Neutrophils 4.1 thou/uL (1.40-6.50); %Eosinophils 0.1 % (0.0-10.0); %Monocytes 6.1 % (0.0-10.0); %Neutrophils 82.8 % (42.0-75.0); Hemoglobin 10.5 g/dL (14.0-18.0); Mean Corpuscular HGB CONC 33.1 g/dL (32.0-36.0); Mean Corpuscular Hemoglobin 31.8 pg (27.0-31.0); Mean Corpuscular Volume 95.9 fL (78.0-98.0); Mean Platelet Volume 10.2 fL (7.4-10.4); Platelet Count 64 thou/uL (130-400); RBC Distribution Width 12.6 % (11.5-14.5); Red Blood Cell (RBC) Count 3.31 mill/uL (4.70-6.10); White Blood Cell (WBC) Count 4.9 thou/uL (4.8-10.8)
[2018-08-07 06:03] LABS: Anion Gap 16 mmol/L (10-20); BUN (Urea Nitrogen) 28 mg/dL (8.4-25.7); Calc. Creatinine Clearance 17 mL/min (70-130); Calcium 8.7 mg/dL (7.8-10.44); Carbon Dioxide 31 mmol/L (22-29); Chloride 94 mmol/L (98-107); Estimated GFR-MDRD 9; Glucose 126 mg/dL (70-105); Potassium 3.7 mmol/L (3.5-5.1); Sodium 137 mmol/L (136-145)
[2018-08-07] MEDS ORDERED: Dextrose 5% in Water 1,000 ML IV PRN (07:32)
[2018-08-07] MEDS ORDERED: Dextrose 50% Abboject 50 ML SYRINGE SLOW IVP PRN (07:32)
[2018-08-07] MEDS ORDERED: Prevnar 13-Val Conj/PF 0.5 ML SYRINGE IM ONE (09:00)
[2018-08-07] MEDS ORDERED: Enoxaparin Sodium 30 MG/0.3 ML SYRINGE SC SCH (09:00)
[2018-08-07] MEDS: Carvedilol 25 MG TAB PO SCH ×2 (09:07→20:20)
[2018-08-07] MEDS: Losartan 25 MG TAB PO SCH (09:10)
--- NOTE | 2018-08-07 15:21 | HP ---
CHIEF COMPLAINT: Cough, chills, fever. HISTORY OF PRESENT ILLNESS: The patient is a 57-year-old male, who was admitted to the hospital with 3-day history of cough, fever, and chills. He reports those problems going on for approximately 3 days and it started with congestion, and it quickly got worse and he started having fever and chills. He noticed some bloodish sputum. He denies any chest pain. He feels short of breath when he ambulates. He is hemodialysis dependent with [address] 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 He had pneumonia in the past. He does not remember exactly when. PAST MEDICAL HISTORY: Positive for: 1. Congestive heart failure. 2. ESRD, on hemodialysis Mondays, Wednesdays, and Fridays. 3. Diabetes mellitus, type 2. 4. Hypertension. 5. Hyperlipidemia. 6. Fibrotic liver. PAST SURGICAL HISTORY: 1. Hernia repair. 2. Two stents in the heart. 3. One stent in the right calf for peripheral vascular disease. 4. Defibrillator. 5. Endomyocardial biopsy. 6. Liver biopsy. SOCIAL HISTORY: He denies any alcohol use, cigarette smoking, or illicit drug use. He lives with the family at home. MEDICATIONS: 1. Amlodipine 10 mg once a day. 2. Carvedilol 25 mg twice a day. 3. Digoxin 125 mcg once a day. 4. Aspirin 81 mg once a day. 5. Omeprazole 20 mg once a day. 6. Losartan 50 mg 2 tablets once a day. 7. Atorvastatin 20 mg at bedtime. 8. Clopidogrel 75 mg once a day. ALLERGIES: ANCEF, HIVES; LISINOPRIL, UNKNOWN REACTION; ZITHROMAX, HIVES. REVIEW OF SYSTEMS: All 14 systems were reviewed and all of them were negative except for positive findings in the HPI. PHYSICAL EXAMINATION: VITAL SIGNS: Blood pressure is 125/60, temperature is 100.5, pulse is 85, respiratory rate is 16, and O2 saturation is 95% on nasal cannula. He was 92 today and he was placed on nasal cannula 2 L. HEENT: His head is atraumatic and normocephalic. His skin looks typically renal dialysis patient. The patient's eyes are PERRLA. Sclerae nonicteric. Conjunctiva . Oral mucosa is moist. NECK: Supple. LUNGS: Crackles and rales over the right lung. No wheezing. HEART: S1 and S2 normal. No S3. No S4. ABDOMEN: Soft and nontender. Bowel sounds are present. No organomegaly. EXTREMITIES: 1+ peripheral edema similar bilaterally. The right foot is intermediate amputated. The second right hand finger is amputated. NEUROLOGIC: He is alert and oriented x4. There is no any motor deficits. Cranial nerves are intact. LABORATORY DATA: White count 4.9, hemoglobin 10.5, hematocrit 31.7, platelet count is 64,000. Chemistry; sodium of 137, potassium 3.7, chloride 94, CO2 of 31, BUN 28, creatinine 6.39, glucose ranged from 126 to 144. Lactic acid 1.3. Calcium 8.7. BNP 2720.1, alkaline phosphatase 158, globulin 4.1, lipase 7. Chest x-ray showed cardiomegaly and no infiltrates. Single-lead defibrillator in place, left-sided, this was personally reviewed by me. EKG showed normal sinus rhythm with ventricular rate of 89 beats per minute and nonspecific ST-T wave changes. IMPRESSION: 1. Fever with evidence of systemic inflammatory response, most likely right lung pneumonia. 2. End-stage renal disease, on hemodialysis 3 times a week. 3. Diabetes mellitus type 2, diet controlled. 4. Hypertension. 5. Hyperlipidemia. 6. Peripheral vascular disease. 7. Congestive heart failure with left ventricular ejection fraction of 45%. 8. Fibrotic liver. 9. Normocytic anemia. 10. Thrombocytopenia. PLAN: Admission to the medical floor. It is full admission. Condition is fair. Activity is bedrest and bathroom privileges. O2 p.r.n., IV Hep-Lock, IV vancomycin, and levofloxacin. We will dose the vancomycin based on the trough levels, albuterol p.r.n. for dyspnea. Nephrology consult with Dr. Kushal Arthur. Restart his home medications. We will hold any heparin since his platelets level low. We will use SCDs for DVT prophylaxis. Job ID: [id number]
[2018-08-07 15:43] LABS: Vancomycin, Random 3.3 ug/mL (See Comment)
[2018-08-07] MEDS: Aspirin 81 mg Enteric Coated Tablet PO SCH (20:20)
[2018-08-07] MEDS: Atorvastatin Calcium 20 MG TAB PO SCH (20:20)
--- NOTE | 2018-08-08 08:07 | RAD ---
RIGHT HAND 2 VIEWS: HISTORY: A 57-year-old male with a history of ischemic right hand. Right hand pain. FINDINGS: AP and lateral views of the hand demonstrate very extensive vascular calcifications. There has been amputation of the index finger at the metacarpophalangeal joint with some associated soft tissue swel ling and some bony destructive changes of the distal aspect of the 2nd metacarpal. This certainly co uld represent bone destruction from osteomyelitis. There are generalized degenerative changes. Ther e appear to be amputation changes of the distal aspect of the distal phalanx of the 5th finger with s ome minimal soft tissue irregularity of the distal 5th and distal 4th fingers. IMPRESSION: Severe arteriovascular calcification. Amputation changes of the index finger at the metatarsophalang eal joint with soft tissue swelling as well as some bony destructive changes, certainly the possibili ty of osteomyelitis is a consideration. Possible amputation changes of the distal tuft of the distal phalanx of the 5th finger as well as some soft tissue changes of the distal 5th and 4th fingers. POS: TANISHA
[2018-08-08] MEDS: Losartan 25 MG TAB PO SCH (08:40)
[2018-08-08] MEDS: Carvedilol 25 MG TAB PO SCH ×2 (08:40→23:07)
[2018-08-08] MEDS: Digoxin 0.125 MG TAB PO SCH (08:42)
[2018-08-08 09:28] LABS: Vancomycin, Random 17.1 ug/mL (See Comment)
--- NOTE | 2018-08-08 15:29 | PRG ---
DATE OF SERVICE: 08/08/2018 SUBJECTIVE: The patient is seen and examined at bedside. He is doing significantly better. He is able to cough up phlegm, which looks yellowish and greenish. OBJECTIVE: VITAL SIGNS: Blood pressure 131/67, pulse is 75, temperature is 98.5, and maximal temperature is 100.5. HEENT: His head is atraumatic and normocephalic. Sclera nonicteric. Conjunctiva palish. Oral mucosa is moist. NECK: Supple. LUNGS: Bilateral crackles and rales at both bases. HEART: S1 and S2 normal. No S3, no S4. ABDOMEN: Soft, nontender, obese. EXTREMITIES: No clubbing, cyanosis, or edema. NEUROLOGICAL: He is alert and oriented x4. There are no any motor deficits. LABORATORY DATA: Labs showed glycemia ranging from 122 to 163. Vancomycin trough is 17.1. Microbiology shows respiratory secretion is growing gram-negative rods. Blood cultures negative x2 and influenza A and B, EIA final negative. Right hand 2-views x-ray showed severe vascular calcification and amputation of the index finger at the metacarpophalangeal joint with some associated soft tissue swelling and some bony destructive changes of the distal aspect of the 2nd metacarpal. There is some suspicion for osteomyelitis, so there appeared to be amputation changes of the distal aspect of the distal phalanx of the 5th finger with some minimal soft tissue irregularity of the distal 5th and distal 4th fingers. IMPRESSION: 1. Fever with some evidence of systemic inflammatory response, most likely right lung pneumonia since he improved and since yesterday, although there is some problem with his right hand and possible source of osteomyelitis according to the radiologist report on the x-ray, which was done during this hospitalization. 2. End-stage renal disease, on hemodialysis 3 times a week. 3. Diabetes mellitus type 2, controlled. 4. Hypertension. 5. Hyperlipidemia. 6. Peripheral vascular disease. 7. Congestive heart failure with left ventricular ejection fraction of 45. 8. Fibrotic liver. 9. Normocytic anemia. 10. Thrombocytopenia. PLAN: The plan is to continue his IV antibiotics, vancomycin, and levofloxacin. The sputum culture is growing gram-negative organism. We will have the final culture most likely tomorrow. We will set him for dialyze today after he is seen by Dr. Arthur, and we will re-evaluate the situation whether he needs to be seen by Orthopedic Surgeon or MRI of his right hand would help us to understand the process, which is suspicious for osteomyelitis. We will continue his other medications as before. Job ID: [id number]
[2018-08-08] MEDS: Atorvastatin Calcium 20 MG TAB PO SCH (23:07)
[2018-08-08] MEDS: Aspirin 81 mg Enteric Coated Tablet PO SCH (23:07)
[2018-08-08] MEDS: Albuterol Sulfate 1.25 MG/3 ML NEB NEB PRN (23:36)
[2018-08-08 23:58] LABS: HBSAg Index 0.29 S/CO (0-0.99); Hep B Surf Ag Non-Reactive S/CO (NonReactive)
[2018-08-09 00:55] LABS: Hep B Surf AB Reactive (NonReactive)
[2018-08-09 00:56] LABS: HBSAB Concentration 2423.54 mIU/mL
[2018-08-09] MEDS: Benzonatate 100 MG CAP PO PRN ×3 (01:40→20:25)
[2018-08-09] MEDS: Losartan 25 MG TAB PO SCH (08:45)
[2018-08-09] MEDS: Carvedilol 25 MG TAB PO SCH ×2 (08:45→20:25)
[2018-08-09] MEDS: Amlodipine 10 MG TAB PO SCH (08:45)
[2018-08-09] MEDS ORDERED: cefTRIAXone\\ROCEPHIN 1 GM in Sodium Chloride 0.9% 100 ML IVPB SCH ×2 (09:00→12:00)
--- NOTE | 2018-08-09 10:35 | PDOC.PN ---
- Subjective Encounter Start Date: 08/09/18 Encounter Start Time: 09:00 -: old records requested/rev Patient seen and examined. No new complaints. No overnight events - Objective MAR Reviewed: Yes Vital Signs & Weight: Vital Signs (12 hours) Temp Pulse Resp BP BP BP Pulse Ox 08/09/18 09:55 100 08/09/18 08:45 67 129/68 08/09/18 08:14 98.3 F 67 18 129/68 100 08/09/18 03:00 97.9 F 74 16 142/66 H 98 08/08/18 23:48 98.3 F 74 20 157/69 H 92 L 08/08/18 23:36 74 20 88 L Weight Weight 205 lb 1 oz Result Diagrams: 08/07/18 04:48 08/07/18 04:48 Additional Labs: Accuchecks 08/09/18 04:49 POC Glucose 168 H Radiology Reviewed by me: Yes Phys Exam - Physical Examination Constitutional: NAD HEENT: PERRLA, moist MMs, sclera anicteric Neck: no JVD, supple Respiratory: no wheezing, no rales, no rhonchi Cardiovascular: RRR, no significant murmur, no rub Gastrointestinal: soft, non-tender, no distention, positive bowel sounds Musculoskeletal: no edema, pulses present right finger with wound with stich noted Neurological: non-focal, normal sensation Lymphatic: no nodes Psychiatric: normal affect, A&O x 3 Skin: no rash, normal turgor Dx/Plan (1) Pneumonia due to E. coli Code(s): J15.5 - PNEUMONIA DUE TO ESCHERICHIA COLI Status: Acute (2) Sepsis Code(s): A41.9 - SEPSIS, UNSPECIFIED ORGANISM Status: Acute (3) Anemia of renal disease Code(s): N18.9 - CHRONIC KIDNEY DISEASE, UNSPECIFIED; D63.1 - ANEMIA IN CHRONIC KIDNEY DISEASE Status: Chronic (4) Chronic systolic heart failure, ACC/AHA stage C Code(s): I50.22 - CHRONIC SYSTOLIC (CONGESTIVE) HEART FAILURE Status: Chronic (5) Diabetes type 2, controlled Code(s): E11.9 - TYPE 2 DIABETES MELLITUS WITHOUT COMPLICATIONS Status: Chronic (6) Dyslipidemia Code(s): E78.5 - HYPERLIPIDEMIA, UNSPECIFIED Status: Chronic (7) ESRD on hemodialysis Code(s): N18.6 - END STAGE RENAL DISEASE; Z99.2 - DEPENDENCE ON RENAL DIALYSIS Status: Chronic (8) Hypertension Code(s): I10 - ESSENTIAL (PRIMARY) HYPERTENSION Status: Chronic (9) PVD (peripheral vascular disease) Code(s): I73.9 - PERIPHERAL VASCULAR DISEASE, UNSPECIFIED Status: Chronic (10) Secondary hyperparathyroidism of renal origin Code(s): N25.81 - SECONDARY HYPERPARATHYROIDISM OF RENAL ORIGIN Status: Chronic (11) Osteomyelitis of hand Code(s): M86.9 - OSTEOMYELITIS, UNSPECIFIED Status: Suspected - Plan cont current plan of care, continue antibiotics * will consult ID for suspected finger osteomyelitis * add levaquin for pneumonia * vancomycin with HD * repeat labs tomorrow * medication reviewed as below * symptomatic treatment. Review of Systems - Review of Systems ENT: negative: Ear Pain, Ear Discharge, Nose Pain, Nose Discharge, Nose Congestion, Mouth Pain, Mouth Swelling, Throat Pain, Throat Swelling, Other Respiratory: negative: Cough, Dry, Shortness of Breath, Hemoptysis, SOB with Excertion, Pleuritic Pain, Sputum, Wheezing Cardiovascular: negative: chest pain, palpitations, orthopnea, paroxysmal nocturnal dyspnea, edema, light headedness, other Gastrointestinal: negative: Nausea, Vomiting, Abdominal Pain, Diarrhea, Constipation, Melena, Hematochezia, Other Genitourinary: negative: Dysuria, Frequency, Incontinence, Hematuria, Retention , Other Musculoskeletal: negative: Neck Pain, Shoulder Pain, Arm Pain, Back Pain, Hand Pain, Leg Pain, Foot Pain, Other - Medications/Allergies Allergies/Adverse Reactions: Allergies Allergy/AdvReac Type Severity Reaction Status Date / Time azithromycin [From Zithromax] Allergy Verified 07/22/17 16:44 cefazolin [From Ancef] Allergy Verified 07/22/17 16:44 lisinopril Allergy Verified 07/22/17 16:44 Medications: Current Medications Acetaminophen (Tylenol) 650 mg PO Q6H PRN PRN Reason: Fever > 100.4 Last Admin: 08/07/18 18:35 Dose: 650 mg Albuterol Sulfate (Albuterol Sulfate) 1.25 mg NEB [id number] PRN PRN Reason: Wheezing Last Admin: 08/08/18 23:36 Dose: 1.25 mg Amlodipine Besylate (Norvasc) 10 mg PO DAILY [facility]O Last Admin: 08/09/18 08:45 Dose: 10 mg Aspirin (Ecotrin) 81 mg PO HS [facility] Last Admin: 08/08/18 23:07 Dose: 81 mg Atorvastatin Calcium (Lipitor) 20 mg PO QPM [facility] Last Admin: 08/08/18 23:07 Dose: 20 mg Benzonatate (Tessalon) 200 mg PO Q4H PRN PRN Reason: Cough Last Admin: 08/09/18 01:40 Dose: 200 mg Carvedilol (Coreg) 25 mg PO BID [facility] Last Admin: 08/09/18 08:45 Dose: 25 mg Dextrose/Water (Dextrose 50%) 25 gm SLOW IVP PRN PRN PRN Reason: Hypoglycemia Digoxin (Lanoxin) 0.125 mg PO Q2D [facility] Last Admin: 08/08/18 08:42 Dose: 0.125 mg Docusate Sodium (Colace) 100 mg PO BIDPRN PRN PRN Reason: Constipation Glucagon (Glucagon) 1 mg IM PRN PRN PRN Reason: Hypoglycemia Vancomycin HCl 1.25 gm/ Sodium (Chloride) 250 mls @ 166.667 mls/hr IVPB WILLCALL [facility] Vancomycin HCl 1 gm/ Device 200 mls @ 200 mls/hr IVPB WILLCALL [facility] Vancomycin HCl 750 mg/ Sodium (Chloride) 250 mls @ 250 mls/hr IVPB [facility]CALL [facility] Vancomycin HCl 500 mg/ Sodium (Chloride) 100 mls @ 100 mls/hr IVPB [facility]CALL [facility] Dextrose/Water (D5w) 1,000 mls @ 0 mls/hr IV .Q0M PRN PRN Reason: Hypoglycemia Ceftriaxone Sodium 1 gm/ (Sodium Chloride) 100 mls @ 200 mls/hr IVPB Q24HR [facility] Insulin Human Lispro (Humalog) 0 units SC .MILD SLIDING SCALE PRN PRN Reason: Mild Correctional Scale Losartan Potassium (Cozaar) 50 mg PO DAILY [facility] Last Admin: 08/09/18 08:45 Dose: 50 mg Miscellaneous Medication (Pharmacy To Dose) 1 each IVPB PRN PRN PRN Reason: PNA Hold Vancomycin For (Level >20) 0 each FS .AT DIALYSIS [facility] Ondansetron HCl (Zofran) 4 mg IVP Q6H PRN PRN Reason: Nausea/Vomiting Pantoprazole Sodium (Protonix) 40 mg PO DAILY [facility] Last Admin: 08/09/18 08:45 Dose: 40 mg Tramadol HCl (Ultram) 50 mg PO Q12H PRN PRN Reason: Moderate Pain (4-6) Last Admin: 08/07/18 14:27 Dose: 50 mg
--- NOTE | 2018-08-09 11:58 | EKG ---
Test Reason : Blood Pressure : / mmHG Vent. Rate : 089 BPM Atrial Rate : 089 BPM P-R Int : 186 ms QRS Dur : 112 ms QT Int : 356 ms P-R-T Axes : 058 -13 064 degrees QTc Int : 433 ms Normal sinus rhythm Nonspecific ST abnormality Abnormal ECG Confirmed by BUCK COSBY, JUNIOR ([id number]), film or videotape editor JOSEPH PIÑA ([id number]) on 08/09/2018 11:58:18 AM Referred By: Confirmed By:JUNIOR JANE MD
[2018-08-09] MEDS: Albuterol Sulfate 1.25 MG/3 ML NEB NEB PRN (15:41)
--- NOTE | 2018-08-09 17:27 | CON ---
DATE OF CONSULTATION: 08/09/2018 REASON FOR CONSULTATION: Right fifth digit area of necrosis. HISTORY OF PRESENT ILLNESS: This is a 57-year-old patient, who has history of type 2 diabetes mellitus and end-stage renal disease, on hemodialysis with an AV fistula of right upper extremity, and also a steal syndrome in right upper extremity, which was fixed by Dr. Becerra recently. He ended up losing his index finger in that hand and he also developed areas of necrosis at the tip of the fifth digit, right hand. Dr. Norton at [facility] did a debridement of the tip and the patient feels much improvement. He was admitted now with respiratory symptoms and fever for the past 3 days before admission and a little bit of dyspnea. No change of visual symptoms. No sore throat, odynophagia, or dysphagia. No toothache. No back pain. No chest pain. No abdominal pain, diarrhea, or genitourinary symptoms. He does not have much urinary output. No other joint symptoms. No neurological symptoms. PAST MEDICAL HISTORY: CHF with AICD; end-stage renal disease, on hemodialysis through AV fistula; type 2 diabetes; steal syndrome, fixed with drill procedure; hypertension; hyperlipidemia; and chronic liver disease. PAST SURGICAL HISTORY: Also includes hernia repair, stents, AV fistula placement, AICD placement, endomyocardial biopsy, liver biopsy. SOCIAL HISTORY: Never smoker. Lives with . FAMILY HISTORY: Noncontributory. ALLERGIES: ANCEF, LISINOPRIL, AND ZITHROMAX, HIVES. CURRENT MEDICATIONS: 1. Tylenol. 2. Albuterol. 3. Norvasc. 4. Ecotrin. 5. Lipitor. 6. Tessalon. 7. Coreg. 8. Ceftriaxone. 9. Dextrose. 10. Glucagon. 11. Zofran. 12. Vancomycin. PHYSICAL EXAMINATION: VITAL SIGNS: T-max 100.5, he is afebrile at this time; BP 107/57; pulse 67; respirations 18; and O2 saturation 96% on room air. SKIN: Shows the area of scab tissue at the end of the fifth digit in right hand. The distal end of the digit is not swollen or erythematous and not tender either. No drainage noted. There is a stitch from Dr. Norton's recent procedure in place. HEENT: Ocular movements conjugate. Oral cavity is not remarkable. NECK: Supple. No lymphadenopathy. LUNGS: Scattered rhonchi at both posterior and anterior aspect of the right and left lungs. A few crackles here and there. HEART: S1 and S2, regular rate, without murmurs. No S3. ABDOMEN: Soft. Not distended or tender. No ascites. No bladder distention. Mid abdominal hernia noted, which is reducible. GENITAL: Normal. EXTREMITIES: Pulses are diminished in radialis and ulnar artery, right and left side. Popliteal is 1+. Dorsalis pedis faintly palpable. No edema. NEUROLOGIC: Nonfocal including cognitive function. LABORATORY DATA: White cell count, hemoglobin 10.5, platelets 64,000 with 82% neutrophils. Chemistry; sodium 137, creatinine 6.39, chloride 94, potassium 3.7, AST 20, ALT 20, alkaline phosphatase 158, and CK 189. Microbiology with E coli in respiratory samples, susceptible to cephalosporins. Two sets of blood cultures, no growth thus for. Influenza A and B are negative. IMAGING STUDIES: There is a hand x-ray, which showed arteriovascular calcification and amputation of index finger at the MPJ. Possible amputation changes in distal tuft of distal phalanx. Chest x-ray on admission, atherosclerosis and cardiomegaly. ASSESSMENT and DISCUSSION: 1. End-stage renal disease secondary to type 2 diabetes with dialysis through an arteriovenous fistula in right upper extremity. 2. Steal syndrome with drill procedure done by Dr. Becerra with an amputation of the index finger in right hand. 3. Ischemic changes of fifth digit in the right hand with recent debridement of the distal tip of the distal phalanx of right fifth digit in right hand by Dr. Norton. 4. Scab at the end of this digit, still with stitch in place, but no evidence of inflammatory changes. 5. Respiratory symptoms with likely either viral or bacterial pneumonitis. We will submit respiratory virus PCR regarding the fifth digit in right hand. I would recommend a followup with Dr. Norton. At this point, I do not see evidence indicating acute inflammatory process at the digit level. He does have vascular issues and the healing difficulty might be related to that and will need to be followed by Dr. Norton. He is at risk for further amputation of the fifth digit down the road. Job ID: [id number] [facility]
[2018-08-09] MEDS: Aspirin 81 mg Enteric Coated Tablet PO SCH (20:25)
[2018-08-09] MEDS: Atorvastatin Calcium 20 MG TAB PO SCH (20:26)
[2018-08-10] MEDS: Benzonatate 100 MG CAP PO PRN (01:03)
[2018-08-10] MEDS: Albuterol Sulfate 1.25 MG/3 ML NEB NEB PRN (02:30)
[2018-08-10] MEDS ORDERED: Eucerin (Mineral Oil/Petrolatum,White) 30 gm Jar TOP PRN (06:48)
[2018-08-10] MEDS ORDERED: hydrALAZINE 20 MG/ML VIAL SLOW IVP PRN (06:48)
[2018-08-10] MEDS ORDERED: Loperamide HCl 2 MG CAP PO PRN (06:48)
[2018-08-10] MEDS ORDERED: Ondansetron ODT 4 MG TAB PO PRN (06:48)
[2018-08-10] MEDS ORDERED: Loratadine 10 MG TAB PO PRN (06:48)
[2018-08-10] MEDS ORDERED: Artificial Tears 18 DROP/0.9 ML EA EYE PRN (06:48)
[2018-08-10] MEDS ORDERED: Bisacodyl 5 MG TAB PO PRN (06:48)
[2018-08-10] MEDS ORDERED: Sodium Chloride 0.65% Nasal 44 ML BOT EA NARE PRN (06:48)
[2018-08-10] MEDS ORDERED: Cepastat Lozenges 1 LOZ PO PRN (06:48)
[2018-08-10] MEDS ORDERED: Senokot S 8.6-50 MG TAB PO PRN (06:48)
[2018-08-10 06:53] LABS: ALT (SGPT) 20 U/L (8-55); AST (SGOT) 23 U/L (5-34); Albumin 3.6 g/dL (3.5-5.0); Alkaline Phosphatase 175 U/L (40-150); Anion Gap 15 mmol/L (10-20); BUN (Urea Nitrogen) 54 mg/dL (8.4-25.7); Bilirubin, Total 0.6 mg/dL (0.2-1.2); CRP (Inflammatory) 5.75 mg/dL (= or < 0.5); Calc. Creatinine Clearance 12 mL/min (70-130); Calcium 8.3 mg/dL (7.8-10.44); Carbon Dioxide 29 mmol/L (22-29); Chloride 96 mmol/L (98-107); Estimated GFR-MDRD 6; Globulin 3.7 g/dL (2.4-3.5); Glucose 147 mg/dL (70-105); Potassium 3.8 mmol/L (3.5-5.1); Protein, Total 7.3 g/dL (6.0-8.3); Sodium 136 mmol/L (136-145)
[2018-08-10 07:02] LABS: #Eosinphils 0.1 thou/uL (0.0-0.7); #Lymphocytes 0.9 thou/uL (1.20-3.40); #Monocytes 0.3 thou/uL (0.11-0.59); #Neutrophils 2.6 thou/uL (1.40-6.50); %Basophils 0.1 % (0.0-1.0); %Eosinophils 3.5 % (0.0-10.0); %Lymphocytes 22.3 % (21.0-51.0); %Monocytes 6.3 % (0.0-10.0); %Neutrophils 67.7 % (42.0-75.0); Mean Corpuscular HGB CONC 32.9 g/dL (32.0-36.0); Mean Corpuscular Hemoglobin 30.9 pg (27.0-31.0); Mean Corpuscular Volume 93.8 fL (78.0-98.0); Mean Platelet Volume 9.5 fL (7.4-10.4); Platelet Count 77 thou/uL (130-400); RBC Distribution Width 12.4 % (11.5-14.5); Red Blood Cell (RBC) Count 3.23 mill/uL (4.70-6.10); White Blood Cell (WBC) Count 3.9 thou/uL (4.8-10.8)
[2018-08-10] MEDS: Digoxin 0.125 MG TAB PO SCH (08:19)
[2018-08-10] MEDS: Amlodipine 10 MG TAB PO SCH (08:20)
[2018-08-10] MEDS: Carvedilol 25 MG TAB PO SCH ×2 (08:20→20:26)
[2018-08-10] MEDS: Losartan 25 MG TAB PO SCH (08:20)
--- NOTE | 2018-08-10 08:37 | PDOC.PN ---
- Subjective Encounter Start Date: 08/10/18 Encounter Start Time: 07:30 today he feels congested, has cough, no fever Patient seen and examined. No overnight events - Objective MAR Reviewed: Yes Vital Signs & Weight: Vital Signs (12 hours) Temp Pulse Resp BP BP Pulse Ox 08/10/18 08:20 65 149/72 H 08/10/18 08:19 65 08/10/18 07:47 97.7 F 65 18 149/72 H 95 08/10/18 03:00 98.4 F 67 16 149/76 H 91 L 08/10/18 02:30 70 20 95 08/09/18 23:00 98.5 F 73 16 146/64 H 96 Weight Weight 205 lb 1 oz I&O: 08/09/18 08/10/18 08/11/18 06:59 06:59 06:59 Intake Total 700 Balance 700 Result Diagrams: 08/10/18 05:55 08/10/18 05:55 Additional Labs: Accuchecks 08/10/18 08/09/18 08/09/18 05:04 20:38 16:47 POC Glucose 128 H 140 H 157 H 08/09/18 11:11 POC Glucose 113 H Phys Exam - Physical Examination Constitutional: NAD HEENT: PERRLA, moist MMs, sclera anicteric Neck: no JVD, supple Respiratory: no wheezing, no rales, no rhonchi coarse sound+ Cardiovascular: RRR, no significant murmur, no rub Gastrointestinal: soft, non-tender, no distention, positive bowel sounds Musculoskeletal: no edema, pulses present Neurological: non-focal, normal sensation, moves all 4 limbs Lymphatic: no nodes Psychiatric: normal affect, A&O x 3 Skin: no rash, normal turgor Dx/Plan (1) Pneumonia due to E. coli Code(s): J15.5 - PNEUMONIA DUE TO ESCHERICHIA COLI Status: Acute (2) Sepsis Code(s): A41.9 - SEPSIS, UNSPECIFIED ORGANISM Status: Acute (3) Anemia of renal disease Code(s): N18.9 - CHRONIC KIDNEY DISEASE, UNSPECIFIED; D63.1 - ANEMIA IN CHRONIC KIDNEY DISEASE Status: Chronic (4) Chronic systolic heart failure, ACC/AHA stage C Code(s): I50.22 - CHRONIC SYSTOLIC (CONGESTIVE) HEART FAILURE Status: Chronic (5) Diabetes type 2, controlled Code(s): E11.9 - TYPE 2 DIABETES MELLITUS WITHOUT COMPLICATIONS Status: Chronic (6) Dyslipidemia Code(s): E78.5 - HYPERLIPIDEMIA, UNSPECIFIED Status: Chronic (7) ESRD on hemodialysis Code(s): N18.6 - END STAGE RENAL DISEASE; Z99.2 - DEPENDENCE ON RENAL DIALYSIS Status: Chronic (8) Hypertension Code(s): I10 - ESSENTIAL (PRIMARY) HYPERTENSION Status: Chronic (9) PVD (peripheral vascular disease) Code(s): I73.9 - PERIPHERAL VASCULAR DISEASE, UNSPECIFIED Status: Chronic (10) Secondary hyperparathyroidism of renal origin Code(s): N25.81 - SECONDARY HYPERPARATHYROIDISM OF RENAL ORIGIN Status: Chronic (11) Osteomyelitis of hand Code(s): M86.9 - OSTEOMYELITIS, UNSPECIFIED Status: Suspected - Plan cont current plan of care, continue antibiotics, respiratory therapy * add duoneb q 6 hourly * add solumderol 20 mg iv q 6 hrly today * tomorrow HD * ID recommendation appreciated * medication reviewed as below * symptomatic treatment * continue rocephin and vancomycin * on discharge omnicef PO * add mucinex. Review of Systems - Review of Systems Constitutional: negative: fever, chills, sweats, weakness, malaise, other Eyes: negative: Pain, Vision Change, Conjunctivae Inflammation, Eyelid Inflammation, Redness, Other ENT: negative: Ear Pain, Ear Discharge, Nose Pain, Nose Discharge, Nose Congestion, Mouth Pain, Mouth Swelling, Throat Pain, Throat Swelling, Other Respiratory: Cough. negative: Dry, Shortness of Breath, Hemoptysis, SOB with Excertion, Pleuritic Pain, Sputum, Wheezing Cardiovascular: negative: chest pain, palpitations, orthopnea, paroxysmal nocturnal dyspnea, edema, light headedness, other Gastrointestinal: negative: Nausea, Vomiting, Abdominal Pain, Diarrhea, Constipation, Melena, Hematochezia, Other Genitourinary: negative: Dysuria, Frequency, Incontinence, Hematuria, Retention , Other Musculoskeletal: negative: Neck Pain, Shoulder Pain, Arm Pain, Back Pain, Hand Pain, Leg Pain, Foot Pain, Other - Medications/Allergies Allergies/Adverse Reactions: Allergies Allergy/AdvReac Type Severity Reaction Status Date / Time azithromycin [From Zithromax] Allergy Verified 07/22/17 16:44 lisinopril Allergy Verified 07/22/17 16:44 Medications: Current Medications Acetaminophen (Tylenol) 650 mg PO Q6H PRN PRN Reason: Fever > 100.4 Last Admin: 08/07/18 18:35 Dose: 650 mg Albuterol Sulfate (Albuterol Sulfate) 1.25 mg NEB R1KS-AC PRN PRN Reason: Wheezing Last Admin: 08/10/18 02:30 Dose: 1.25 mg Amlodipine Besylate (Norvasc) 10 mg PO DAILY [facility] Last Admin: 08/10/18 08:20 Dose: 10 mg Artificial Tears (Tears Naturale) 2 drop EA EYE PRN PRN PRN Reason: Dry Eyes Aspirin (Ecotrin) 81 mg PO HS [facility] Last Admin: 08/09/18 20:25 Dose: 81 mg Atorvastatin Calcium (Lipitor) 20 mg PO QPM [facility] Last Admin: 08/09/18 20:26 Dose: 20 mg Benzonatate (Tessalon) 200 mg PO Q4H PRN PRN Reason: Cough Last Admin: 08/10/18 01:03 Dose: 200 mg Bisacodyl (Dulcolax) 10 mg PO DAILYPRN PRN PRN Reason: Constipation Carvedilol (Coreg) 25 mg PO BID [facility] Last Admin: 08/10/18 08:20 Dose: 25 mg Dextrose/Water (Dextrose 50%) 25 gm SLOW IVP PRN PRN PRN Reason: Hypoglycemia Digoxin (Lanoxin) 0.125 mg PO Q2D [facility] Last Admin: 08/10/18 08:19 Dose: 0.125 mg Docusate Sodium (Colace) 100 mg PO BIDPRN PRN PRN Reason: Constipation Glucagon (Glucagon) 1 mg IM PRN PRN PRN Reason: Hypoglycemia Guaifenesin (Mucinex) 600 mg PO Q12HR [facility] Hydralazine HCl (Apresoline) 10 mg SLOW IVP Q4H PRN PRN Reason: SBP > 180 and HR < 70 Vancomycin HCl 1.25 gm/ Sodium (Chloride) 250 mls @ 166.667 mls/hr IVPB WILLCALL [facility] Vancomycin HCl 1 gm/ Device 200 mls @ 200 mls/hr IVPB WILLCALL [facility] Vancomycin HCl 750 mg/ Sodium (Chloride) 250 mls @ 250 mls/hr IVPB [facility] Vancomycin HCl 500 mg/ Sodium (Chloride) 100 mls @ 100 mls/hr IVPB [facility]CALL [facility] Dextrose/Water (D5w) 1,000 mls @ 0 mls/hr IV .Q0M PRN PRN Reason: Hypoglycemia Ceftriaxone Sodium 1 gm/ (Sodium Chloride) 100 mls @ 200 mls/hr IVPB Q24HR [facility] Last Admin: 08/09/18 12:04 Dose: 100 mls Insulin Human Lispro (Humalog) 0 units SC .MILD SLIDING SCALE PRN PRN Reason: Mild Correctional Scale Loperamide HCl (Imodium) 2 mg PO PRN PRN PRN Reason: Diarrhea/Loose Stools Loratadine (Claritin) 10 mg PO DAILYPRN PRN PRN Reason: Sinus Symptoms Losartan Potassium (Cozaar) 50 mg PO DAILY [facility] Last Admin: 08/10/18 08:20 Dose: 50 mg Methylprednisolone Sodium Succinate (Solu-Medrol) 20 mg IVP Q6H [facility] Mineral Oil/White Petrolatum (Eucerin Cream) 0 gm TOP BIDPRN PRN PRN Reason: Dry Skin Miscellaneous Medication (Pharmacy To Dose) 1 each IVPB PRN PRN PRN Reason: PNA Hold Vancomycin For (Level >20) 0 each FS .AT DIALYSIS [facility] Ondansetron HCl (Zofran) 4 mg IVP Q6H PRN PRN Reason: Nausea/Vomiting Ondansetron HCl (Zofran Odt) 4 mg PO Q6H PRN PRN Reason: Nausea/Vomiting Pantoprazole Sodium (Protonix) 40 mg PO DAILY [facility] Last Admin: 08/10/18 08:20 Dose: 40 mg Senna/Docusate Sodium (Senokot S) 2 tab PO BID PRN PRN Reason: Constipation Sodium Chloride ([place] Nasal [place] 0.65%) 0 ml EA NARE QIDPRN PRN PRN Reason: Nasal Congestion Throat Lozenges (Cepastat Lozenges) 1 delisa PO Q2H PRN PRN Reason: Sore Throat Tramadol HCl (Ultram) 50 mg PO Q12H PRN PRN Reason: Moderate Pain (4-6) Last Admin: 08/07/18 14:27 Dose: 50 mg Zolpidem Tartrate (Ambien) 5 mg PO HSPRN PRN PRN Reason: Insomnia
[2018-08-10] MEDS ORDERED: Diabetic Tussin 200 MG/10 ML UDCUP PO SCH (09:00)
[2018-08-10] MEDS: guaiFENesin ER 600 MG TAB PO SCH ×2 (09:06→20:27)
[2018-08-10] MEDS: HumaLOG 300 UNITS/3 ML VIAL SC PRN ×2 (16:58→20:32)
[2018-08-10] MEDS: Aspirin 81 mg Enteric Coated Tablet PO SCH (20:26)
[2018-08-10] MEDS: Atorvastatin Calcium 20 MG TAB PO SCH (20:30)
--- NOTE | 2018-08-10 21:17 | HP ---
HISTORY OF PRESENT ILLNESS: Blue Vaughn is a 57-year-old diabetic male with end-stage renal disease, on maintenance dialysis utilizing right arm fistula. He has a right upper arm cephalic vein fistula, which I placed many years ago. He has arteriosclerotic disease and developed ischemia of his right hand. He has had surgeries of his right hand, amputation of his index finger just distal to the metacarpal joint. He developed an infection, he states from picking at his cuticle and Dr. Norton amputated the distal tip of his small finger. The patient denies having any pain. He has baseline mobility without mobility compromise. He has some chronic mobility problems from past hand problems. The patient underwent a DRIL procedure using a segment of a basilic vein from his right arm to revascularize his right hand in October 2017. His pain went away. The wound from his index finger healed. Since that time, he has not had any pain. The patient is admitted on this admission for pneumonia. He has an IV in his left antecubital area, which should be removed. Even though he has a functioning fistula in his right arm; at his age of 57, there is risk of malfunction and had to be moved to the other arm and at least should not be established in patients with end-stage renal disease above the wrist. Dr. Norton has amputated the distal tip of his small finger. He has some inflammatory changes, but there is no pain. I have been asked by Dr. Kushal Arthur to see him for a concern of ischemia. The patient communicates to me that when Dr. Norton amputated his small finger, he reported excellent blood supply, good bleeding, and his circulation was not the problem. On exam, the patient has a palpable reverse basilic vein interposition graft from his DRIL procedure in his proximal forearm. He has good Doppler signals in his radial and ulnar pulse. There are no clinical nor historical evidence of ischemia. The patient presented in July 2017 with incarcerated umbilical hernia, Dr. Rojas repaired. The patient has a history of cirrhosis. The patient had bowel obstruction secondary to incarcerated hernia. The patient underwent repair using a 11.[address] mesh patch. Postoperatively, the patient developed a seroma, requiring evacuation and drainages as it was very large and the skin was standing out. This healed well, but during this admission, the patient asked about his recurrent ventral hernia in umbilical area. He has a 4 cm defect. The patient did have an x-ray of his hands showing severe arteriosclerotic calcifications, amputated changes of the index finger at the metacarpal joint with the stump of the phalanx just beyond this, some soft tissue swelling, but no definite evidence of osteomyelitis, distal tuft with distal phalanx changes noted. ALLERGIES: AZITHROMYCIN, CEFAZOLIN, LISINOPRIL. SOCIAL HISTORY: Tobacco, none. Alcohol, none. MEDICATIONS: 1. Amlodipine. 2. Carvedilol. 3. Atorvastatin. 4. Aspirin. 5. Losartan. 6. Digoxin. 7. Tramadol. Right arm fistula inflow proximal radial artery and outflow cephalic vein. DRIL procedure earlier this year using a segment of basilic vein, right arm. PAST MEDICAL HISTORY: Diabetes mellitus type 2; end-stage renal disease, on maintenance dialysis; diabetic neuropathy, cirrhosis; dialyzes on Saturday, Saturday, and Saturday; followed by Dr. Kushal Arthur. PHYSICAL EXAMINATION: VITAL SIGNS: 5 foot 11, 205 pounds, 28 BMI, 98.6, 65, 131/67. HEAD, EARS, EYES, NOSE, AND THROAT: Unremarkable. LUNGS: Clear to auscultation. CARDIAC: Regular rate and rhythm without murmur or gallop. ABDOMEN: Soft. Umbilical hernia with a 4 cm defect, easily reducible. EXTREMITIES: Unremarkable. Prior amputation of the right index finger through the proximal phalanx well-healed, small finger distal amputation with a tuft. No evidence of infection. Chronic inflammatory changes. Suture at the tip. Excellent Doppler radial and ulnar pulse. Palpable basilic vein segment for revascularization of his DRIL procedure. ASSESSMENT AND PLAN: 1. End-stage renal disease with a functioning arteriovenous fistula, right arm, functioning well. 2. History of ischemia, hand, resolved after distal revascularization-interval ligation procedure. No evidence of ischemia now. 3. Well-healed amputation site, right index finger. No clinical evidence of osteomyelitis. Radiological evidence is equivocal and I do not think it is need to pursue that as there is no problem clinically. small finger distal tuft amputation by Dr. Norton. There are chronic inflammatory changes consistent with the patient's past history of infection. There are no signs of ischemia. No further intervention warranted. 4. Severe arteriosclerotic disease with arteriogram performed at [place] and [place] earlier this year revealing ulnar artery occlusion mid right forearm, status post distal revascularization-interval ligation procedure. 5. Diabetes mellitus. 6. Hypertension. 7. Umbilical hernia, recurrent. I have recommended robot repair of this using mesh in the future as an outpatient. Risks of infection, bleeding, and reoperation discussed. He does have comorbidity of cirrhosis, although [id number] protuberant, does not have a fluid wave. At this point, I will see him as needed during this hospitalization. I have recommended he follow up with me as an outpatient for consideration of robotically approached mesh repair of his recurrent ventral/umbilical hernia. Job ID: [id number]
[2018-08-10] MEDS: Zolpidem Tartrate 5 MG TAB PO PRN (23:29)
[2018-08-11] MEDS: Zolpidem Tartrate 5 MG TAB PO PRN (01:56)
--- NOTE | 2018-08-11 09:47 | PDOC.PN ---
- Subjective Encounter Start Date: 08/11/18 Encounter Start Time: 07:55 Patient seen and examined. No new complaints. No overnight events - Objective MAR Reviewed: Yes Vital Signs & Weight: Vital Signs (12 hours) Temp Pulse Resp BP Pulse Ox 08/11/18 07:37 97.6 F 72 18 167/72 H 94 L 08/11/18 06:31 75 22 H 97 08/10/18 23:47 76 16 94 L Weight Weight 205 lb 1 oz I&O: 08/10/18 08/11/18 08/12/18 06:59 06:59 06:59 Intake Total 700 840 Balance 700 840 Result Diagrams: 08/10/18 05:55 08/10/18 05:55 Additional Labs: Accuchecks 08/11/18 08/10/18 08/10/18 05:13 19:40 16:50 POC Glucose 198 H 365 H 261 H 08/10/18 11:43 POC Glucose 150 H Phys Exam - Physical Examination Constitutional: NAD HEENT: PERRLA, moist MMs, sclera anicteric Neck: no JVD, supple Respiratory: no wheezing, no rales, no rhonchi Cardiovascular: RRR, no significant murmur, no rub Gastrointestinal: soft, non-tender, no distention, positive bowel sounds Musculoskeletal: no edema, pulses present Neurological: non-focal, normal sensation Lymphatic: no nodes Psychiatric: normal affect, A&O x 3 Skin: no rash, normal turgor Dx/Plan (1) Pneumonia due to E. coli Code(s): J15.5 - PNEUMONIA DUE TO ESCHERICHIA COLI Status: Acute (2) Sepsis Code(s): A41.9 - SEPSIS, UNSPECIFIED ORGANISM Status: Acute (3) Anemia of renal disease Code(s): N18.9 - CHRONIC KIDNEY DISEASE, UNSPECIFIED; D63.1 - ANEMIA IN CHRONIC KIDNEY DISEASE Status: Chronic (4) Chronic systolic heart failure, ACC/AHA stage C Code(s): I50.22 - CHRONIC SYSTOLIC (CONGESTIVE) HEART FAILURE Status: Chronic (5) Diabetes type 2, controlled Code(s): E11.9 - TYPE 2 DIABETES MELLITUS WITHOUT COMPLICATIONS Status: Chronic (6) Dyslipidemia Code(s): E78.5 - HYPERLIPIDEMIA, UNSPECIFIED Status: Chronic (7) ESRD on hemodialysis Code(s): N18.6 - END STAGE RENAL DISEASE; Z99.2 - DEPENDENCE ON RENAL DIALYSIS Status: Chronic (8) Hypertension Code(s): I10 - ESSENTIAL (PRIMARY) HYPERTENSION Status: Chronic (9) PVD (peripheral vascular disease) Code(s): I73.9 - PERIPHERAL VASCULAR DISEASE, UNSPECIFIED Status: Chronic (10) Secondary hyperparathyroidism of renal origin Code(s): N25.81 - SECONDARY HYPERPARATHYROIDISM OF RENAL ORIGIN Status: Chronic (11) Osteomyelitis of hand Code(s): M86.9 - OSTEOMYELITIS, UNSPECIFIED Status: Suspected - Plan cont current plan of care, continue antibiotics * medication reviewed as below * symptomatic treatment * see my discharge gautam. Review of Systems - Review of Systems ENT: negative: Ear Pain, Ear Discharge, Nose Pain, Nose Discharge, Nose Congestion, Mouth Pain, Mouth Swelling, Throat Pain, Throat Swelling, Other Respiratory: negative: Cough, Dry, Shortness of Breath, Hemoptysis, SOB with Excertion, Pleuritic Pain, Sputum, Wheezing Cardiovascular: negative: chest pain, palpitations, orthopnea, paroxysmal nocturnal dyspnea, edema, light headedness, other Gastrointestinal: negative: Nausea, Vomiting, Abdominal Pain, Diarrhea, Constipation, Melena, Hematochezia, Other Genitourinary: negative: Dysuria, Frequency, Incontinence, Hematuria, Retention , Other Musculoskeletal: negative: Neck Pain, Shoulder Pain, Arm Pain, Back Pain, Hand Pain, Leg Pain, Foot Pain, Other - Medications/Allergies Allergies/Adverse Reactions: Allergies Allergy/AdvReac Type Severity Reaction Status Date / Time azithromycin [From Zithromax] Allergy Verified 07/22/17 16:44 lisinopril Allergy Verified 07/22/17 16:44 Medications: Current Medications Acetaminophen (Tylenol) 650 mg PO Q6H PRN PRN Reason: Fever > 100.4 Last Admin: 08/07/18 18:35 Dose: 650 mg Albuterol Sulfate (Albuterol Sulfate) 1.25 mg NEB [id number] PRN PRN Reason: Wheezing Last Admin: 08/10/18 02:30 Dose: 1.25 mg Albuterol/Ipratropium (Duoneb) 3 ml NEB [id number] HAO Last Admin: 08/11/18 06:31 Dose: 3 ml Amlodipine Besylate (Norvasc) 10 mg PO DAILY [facility] Last Admin: 08/10/18 08:20 Dose: 10 mg Artificial Tears (Tears Naturale) 2 drop EA EYE PRN PRN PRN Reason: Dry Eyes Aspirin (Ecotrin) 81 mg PO HS [facility] Last Admin: 08/10/18 20:26 Dose: 81 mg Atorvastatin Calcium (Lipitor) 20 mg PO QPM [facility] Last Admin: 08/10/18 20:30 Dose: 20 mg Benzonatate (Tessalon) 200 mg PO Q4H PRN PRN Reason: Cough Last Admin: 08/10/18 01:03 Dose: 200 mg Bisacodyl (Dulcolax) 10 mg PO DAILYPRN PRN PRN Reason: Constipation Carvedilol (Coreg) 25 mg PO BID [facility] Last Admin: 08/10/18 20:26 Dose: 25 mg Dextrose/Water (Dextrose 50%) 25 gm SLOW IVP PRN PRN PRN Reason: Hypoglycemia Digoxin (Lanoxin) 0.125 mg PO Q2D [facility] Last Admin: 08/10/18 08:19 Dose: 0.125 mg Docusate Sodium (Colace) 100 mg PO BIDPRN PRN PRN Reason: Constipation Glucagon (Glucagon) 1 mg IM PRN PRN PRN Reason: Hypoglycemia Guaifenesin (Mucinex) 600 mg PO Q12HR [facility] Last Admin: 08/10/18 20:27 Dose: 600 mg Hydralazine HCl (Apresoline) 10 mg SLOW IVP Q4H PRN PRN Reason: SBP > 180 and HR < 70 Dextrose/Water (D5w) 1,000 mls @ 0 mls/hr IV .Q0M PRN PRN Reason: Hypoglycemia Insulin Human Lispro (Humalog) 0 units SC .MILD SLIDING SCALE PRN PRN Reason: Mild Correctional Scale Last Admin: 08/10/18 20:32 Dose: 6 unit Loperamide HCl (Imodium) 2 mg PO PRN PRN PRN Reason: Diarrhea/Loose Stools Loratadine (Claritin) 10 mg PO DAILYPRN PRN PRN Reason: Sinus Symptoms Losartan Potassium (Cozaar) 50 mg PO DAILY [facility] Last Admin: 08/10/18 08:20 Dose: 50 mg Methylprednisolone Sodium Succinate (Solu-Medrol) 20 mg IVP Q6H [facility] Last Admin: 08/11/18 08:25 Dose: Not Given Mineral Oil/White Petrolatum (Eucerin Cream) 0 gm TOP BIDPRN PRN PRN Reason: Dry Skin Ondansetron HCl (Zofran) 4 mg IVP Q6H PRN PRN Reason: Nausea/Vomiting Ondansetron HCl (Zofran Odt) 4 mg PO Q6H PRN PRN Reason: Nausea/Vomiting Pantoprazole Sodium (Protonix) 40 mg PO DAILY [facility] Last Admin: 08/10/18 08:20 Dose: 40 mg Senna/Docusate Sodium (Senokot S) 2 tab PO BID PRN PRN Reason: Constipation Sodium Chloride (Citrus Nasal [place] 0.65%) 0 ml EA NARE QIDPRN PRN PRN Reason: Nasal Congestion Throat Lozenges (Cepastat Lozenges) 1 delisa PO Q2H PRN PRN Reason: Sore Throat Tramadol HCl (Ultram) 50 mg PO Q12H PRN PRN Reason: Moderate Pain (4-6) Last Admin: 08/07/18 14:27 Dose: 50 mg Zolpidem Tartrate (Ambien) 5 mg PO HSPRN PRN PRN Reason: Insomnia Last Admin: 08/11/18 01:56 Dose: 5 mg
--- NOTE | 2018-08-11 11:17 | DIS ---
DATE OF ADMISSION: 08/06/2018 DATE OF DISCHARGE: 08/11/2018 PRIMARY CARE PHYSICIAN: Dalia Oliveira MD DISCHARGE DISPOSITION: Home. PRIMARY DISCHARGE DIAGNOSIS: Pneumonia due to Escherichia coli sepsis. SECONDARY DISCHARGE DIAGNOSES: Secondary hyperparathyroidism of renal origin, peripheral vascular disease, hypertension, ESRD on hemodialysis, diabetes type 2 , dyslipidemia, chronic systolic heart failure, anemia of renal disease. PRIMARY PROCEDURE/OPERATION: Maintenance hemodialysis. RADIOLOGICAL INVESTIGATION: Chest x-ray on admission showed no evidence of congestive heart failure. Hand x-ray. Significant labs; hemoglobin 10.0, platelets 77, and WBC 3.9. Sodium 136, creatinine 8.68. Alkaline phosphatase 175, CRP 5.75. Hepatitis B surface antigen negative. Sputum culture growing E coli. Respiratory virus panel positive for human metapneumovirus. Blood culture negative. DISCHARGE MEDICATIONS: 1. Omnicef 300 mg p.o. b.i.d. 2. Mucinex 600 mg twice daily over the counter. 3. Tramadol 50 mg q.6 hours p.r.n. 4. Omeprazole 20 mg p.o. daily. 5. Losartan 50 mg daily. 6. Colace 100 mg b.i.d. 7. Coreg 25 mg p.o. b.i.d. 8. Lipitor 20 mg p.o. daily. 9. Aspirin 81 mg p.o. daily. 10. Amlodipine 10 mg p.o. daily. 11. Digoxin 0.125 mg p.o. every other day. CONTRAINDICATION: None. CODE STATUS: Full code. INPATIENT CONSULTANTS: 1. Dr. Kushal Arthur was consulted for maintenance hemodialysis. 2. Dr. Becerra was consulted for abnormal finding on x-ray. 3. Dr. Mendez was consulted for suspected osteomyelitis. TEST RESULTS PENDING ON DISCHARGE: None. ALLERGIES: AZITHROMYCIN AND LISINOPRIL. DISCHARGE PLAN: Post hospital, the patient will follow up with primary care physician. HOSPITAL COURSE: A 57-year-old male with above-mentioned medical problem, who was admitted by Dr. Fraser for lower respiratory symptoms with cough, increasing shortness of breath, and subjective fever. His chest x-ray was unremarkable. His influenza screen was negative, virus panel was positive for human metapneumovirus. We suspected bronchitis/early pneumonia. We treated him with vancomycin and Rocephin, but his sputum culture grew positive for E coli and based on culture and sensitivity result, we changed to Omnicef upon discharge. The patient was tolerating this medication very well without any side effects. While in the hospital, Dr. Becerra, Dr. Kushal Arthur, and Dr. Mendez were following. Today, the patient is stable enough to be discharged home. He will continue all his previous medication. The patient is seen and examined at bedside today. Please see my progress note from today for further details. Job ID: [id number] MTDD
[2018-08-11] MEDS: Losartan 25 MG TAB PO SCH (13:15)
[2018-08-11] MEDS: guaiFENesin ER 600 MG TAB PO SCH (13:15)
[2018-08-11] MEDS: Amlodipine 10 MG TAB PO SCH (13:16)
[2018-08-11] MEDS: Carvedilol 25 MG TAB PO SCH (13:16)
[2018-08-11 13:17] VITALS: BP 146/70
[2018-08-11 13:29] VITALS: TEMP 97.7
--- NOTE | 2018-08-13 04:36 | TCOM ---
DATE OF STUDY: 08/08/2018 Transcutaneous oximetry assessment. CLINICAL INFORMATION: Mr. Blue Vaughn is a 57-year-old gentleman with a past medical history significant for congestive heart failure, diabetes mellitus, end-stage renal disease, hypertension, and chronic liver disease. The patient underwent right upper arm cephalic vein fistula placement followed by a DRIL procedure in October of 2017. The patient, however, required amputation of the right index finger and developed necrosis of the tip of the right fifth digit, which was recently debrided by Dr. Norton at [facility]. The patient is now referred for transcutaneous oxygen mapping of the distal right upper extremity. IMPRESSION: The chest reference value is depressed, consistent with a central oxygenation deficiency. One transcutaneous oxygen value of the right upper extremity is within normal limits. The remaining values including the fifth digit periwound value are significant for hypoxia under ambient conditions. The response of all values to hyperoxic challenge is consistent with significant regional ischemia. The above study suggests an ablative procedure within the right hand, may be complicated by a compromise in oxygen dependent wound healing. Job ID: [id number]
[2018-08-14] MEDS ORDERED: Heparin 10,000 UNITS/ 10 ML VIAL ONE (14:39)
== END 2018-08-11 14:29 | disposition home or self-care (01) | DRG 871 ==
LOC: ERS 16:06 → T4-A 17:15
PROVIDERS: ADMIT Internal Medicine; ATTEND Internal Medicine
PROC: 5A1D70Z Performance of Urinary Filtration, Intermittent, Less than 6 Hours Per Day (ICD-10-PCS; 2018-08-08)
PROC: 5A1D70Z Performance of Urinary Filtration, Intermittent, Less than 6 Hours Per Day (ICD-10-PCS; principal; 2018-08-11)
DX: A41.9 Sepsis, unspecified organism (principal); J15.5 Pneumonia due to Escherichia coli; N18.6 End stage renal disease; I13.0 Hypertensive heart and chronic kidney disease with heart failure and stage 1 through stage 4 chronic kidney disease, or unspecified chronic kidney disease; N25.81 Secondary hyperparathyroidism of renal origin; I50.22 Chronic systolic (congestive) heart failure; E11.22 Type 2 diabetes mellitus with diabetic chronic kidney disease; Z99.2 Dependence on renal dialysis; E11.40 Type 2 diabetes mellitus with diabetic neuropathy, unspecified; K74.60 Unspecified cirrhosis of liver; K42.9 Umbilical hernia without obstruction or gangrene; N18.9 Chronic kidney disease, unspecified; E11.51 Type 2 diabetes mellitus with diabetic peripheral angiopathy without gangrene; D69.6 Thrombocytopenia, unspecified; K74.0 Hepatic fibrosis; D63.1 Anemia in chronic kidney disease; Z79.82 Long term (current) use of aspirin; Z89.021 Acquired absence of right finger(s)
CPT/HCPCS: 36415; 36416; 71045; 80048; 80053; 80202; 82550; 82553; 82947; 83605; 83690; 83880; 85025; 85652; 86140; 86706; 87040; 87070; 87077; 87186; 87205; 87340; 87633; 87804; 90471; 90670; 90935; 93005; 94640; 96365; G0009; G0257; J0696; J1644; J1650; J1956; J2920; J3370; J7050; J7620

== ENCOUNTER 2018-12-29 10:07 | Emergency (ER) | payer MEDICARE ==
[2018-12-29 10:52] LABS: #Eosinphils 0.1 thou/uL (0.0-0.7); #Lymphocytes 0.7 thou/uL (1.20-3.40); #Monocytes 0.2 thou/uL (0.11-0.59); #Neutrophils 2.9 thou/uL (1.40-6.50); %Basophils 0.8 % (0.0-1.0); %Eosinophils 3.7 % (0.0-10.0); %Lymphocytes 18.4 % (21.0-51.0); %Monocytes 5.1 % (0.0-10.0); Hemoglobin 11.2 g/dL (14.0-18.0); Mean Corpuscular HGB CONC 32.4 g/dL (32.0-36.0); Mean Corpuscular Hemoglobin 29.7 pg (27.0-31.0); Mean Corpuscular Volume 91.6 fL (78.0-98.0); Mean Platelet Volume 8.6 fL (7.4-10.4); Platelet Count 91 thou/uL (130-400); RBC Distribution Width 12.7 % (11.5-14.5); Red Blood Cell (RBC) Count 3.76 mill/uL (4.70-6.10)
[2018-12-29 11:11] LABS: ALT (SGPT) 32 U/L (8-55); AST (SGOT) 27 U/L (5-34); Albumin 4.1 g/dL (3.5-5.0); Alkaline Phosphatase 182 U/L (40-150); Anion Gap 19 mmol/L (10-20); BUN (Urea Nitrogen) 71 mg/dL (8.4-25.7); Bilirubin, Total 0.7 mg/dL (0.2-1.2); Calc. Creatinine Clearance 0 mL/min (70-130); Calcium 9.1 mg/dL (7.8-10.44); Carbon Dioxide 28 mmol/L (22-29); Chloride 95 mmol/L (98-107); Estimated GFR-MDRD 6; Globulin 3.6 g/dL (2.4-3.5); Glucose 109 mg/dL (70-105); Potassium 5.7 mmol/L (3.5-5.1); Protein, Total 7.7 g/dL (6.0-8.3); Sodium 136 mmol/L (136-145)
== END 2018-12-29 12:35 | disposition home or self-care (01) ==
LOC: ERS 10:07
DX: K43.9 Ventral hernia without obstruction or gangrene (principal); I13.2 Hypertensive heart and chronic kidney disease with heart failure and with stage 5 chronic kidney disease, or end stage renal disease; N18.6 End stage renal disease; E11.22 Type 2 diabetes mellitus with diabetic chronic kidney disease; I50.9 Heart failure, unspecified; Z99.2 Dependence on renal dialysis
CPT/HCPCS: 36415; 80053; 85025; 93005

== ENCOUNTER 2019-03-27 05:44 | Observation (INO) | payer MEDICARE ==
[2019-03-26 09:54] VITALS: BMI 29.9
[2019-03-27 06:37] LABS: #Eosinphils 0.2 thou/uL (0.0-0.7); #Lymphocytes 0.9 thou/uL (1.20-3.40); #Monocytes 0.3 thou/uL (0.11-0.59); #Neutrophils 2.5 thou/uL (1.40-6.50); %Basophils 0.9 % (0.0-1.0); %Eosinophils 4.5 % (0.0-10.0); %Monocytes 7.5 % (0.0-10.0); %Neutrophils 64.1 % (42.0-75.0); Hemoglobin 10.7 g/dL (14.0-18.0); Mean Corpuscular HGB CONC 34.6 g/dL (32.0-36.0); Mean Corpuscular Volume 92.2 fL (78.0-98.0); Mean Platelet Volume 9.2 fL (7.4-10.4); Platelet Count 74 thou/uL (130-400); RBC Distribution Width 12.5 % (11.5-14.5); Red Blood Cell (RBC) Count 3.36 mill/uL (4.70-6.10); White Blood Cell (WBC) Count 3.8 thou/uL (4.8-10.8)
[2019-03-27] MEDS ORDERED: Fentanyl 100 MCG/2 ML VIAL ONE (06:39)
[2019-03-27] MEDS ORDERED: Famotidine/PF 20 mg/2ml Vial ONE (06:39)
[2019-03-27 06:56] LABS: ALT (SGPT) 47 U/L (8-55); AST (SGOT) 31 U/L (5-34); Albumin 4.4 g/dL (3.5-5.0); Alkaline Phosphatase 156 U/L (40-150); Anion Gap 19 mmol/L (10-20); BUN (Urea Nitrogen) 38 mg/dL (8.4-25.7); Bilirubin, Total 0.6 mg/dL (0.2-1.2); Calc. Creatinine Clearance 13 mL/min (70-130); Calcium 10.1 mg/dL (7.8-10.44); Carbon Dioxide 31 mmol/L (22-29); Chloride 91 mmol/L (98-107); Estimated GFR-MDRD 6; Globulin 3.9 g/dL (2.4-3.5); Glucose 142 mg/dL (70-105); Potassium 5.7 mmol/L (3.5-5.1); Protein, Total 8.3 g/dL (6.0-8.3); Sodium 135 mmol/L (136-145)
[2019-03-27] MEDS ORDERED: Bupivacaine/Epinephrine 0.25% 30 ML VIAL ONE (07:06)
[2019-03-27] MEDS ORDERED: Levofloxacin 500 mg/D5W 100 ml Premix Bag ONE (07:19)
[2019-03-27] MEDS ORDERED: Rocuronium Bromide 50 MG/5 ML VIAL ONE (07:43)
[2019-03-27] MEDS ORDERED: SUGAMMADEX SODIUM 500 MG/5 ML VIAL ONE (07:43)
[2019-03-27] MEDS ORDERED: Phenylephrine HCL 10 MG/ML VIAL ONE ×2 (09:11→10:31)
[2019-03-27] MEDS ORDERED: Atropine Sulfate 0.4 mg/1 ml Vial ONE ×2 (11:46→13:59)
[2019-03-27] MEDS ORDERED: DOPamine 400 MG/D5W 250 ML 250 ML ONE (12:13)
[2019-03-27] MEDS ORDERED: HumaLOG 300 UNITS/3 ML VIAL SC PRN (12:17)
[2019-03-27] MEDS ORDERED: Dextrose 50% Abboject 50 ML SYRINGE SLOW IVP PRN (12:17)
[2019-03-27] MEDS ORDERED: Ondansetron ODT 4 MG TAB PO PRN (12:17)
[2019-03-27] MEDS ORDERED: Ondansetron PF 4 MG/2 ML Vial IVP PRN (12:17)
[2019-03-27] MEDS ORDERED: Morphine 4 MG/ML VIAL SLOW IVP PRN ×2 (12:17)
[2019-03-27] MEDS ORDERED: Lorazepam 2 MG/ML VIAL SLOW IVP PRN (12:17)
[2019-03-27] MEDS ORDERED: Dextrose 5% in Water 1,000 ML IV PRN (12:17)
[2019-03-27] MEDS ORDERED: hydrALAZINE 20 MG/ML VIAL SLOW IVP PRN (12:17)
[2019-03-27] MEDS ORDERED: Ondansetron HCl/PF 4 MG/2 ML Vial IVP PRN (12:27)
[2019-03-27] MEDS ORDERED: DOPamine 400 MG/D5W 250 ML 250 ML IVPB SCH (12:30)
[2019-03-27] MEDS ORDERED: traMADol HCl 50 MG TAB PO PRN (12:59)
[2019-03-27] MEDS ORDERED: HYDROcodone/Acetaminophen 5/325 mg Tablet PO PRN ×2 (12:59)
[2019-03-27] MEDS ORDERED: Non-Formulary Item 1 EACH (Omeprazole [Omeprazole] 20 MG) PO PRN (13:01)
[2019-03-27] MEDS ORDERED: PHENYLEPHRINE-NS 100 MCG/ML 10 ML SYRINGE ONE (13:59)
[2019-03-27] MEDS ORDERED: Glycopyrrolate 0.2 MG/ML 5 ML SYRINGE ONE (13:59)
[2019-03-27] MEDS ORDERED: Lidocaine 1% PF 5 ML VIAL ONE (13:59)
[2019-03-27] MEDS ORDERED: Rocuronium Bromide 10 MG/ML (10ML VIAL) ONE (13:59)
[2019-03-27] MEDS ORDERED: Ketorolac Tromethamine 30 MG/ML VIAL ONE (13:59)
[2019-03-27] MEDS ORDERED: ePHEDrine 50 MG/ML VIAL ONE (13:59)
[2019-03-27] MEDS ORDERED: Ondansetron PF 4 MG/2 ML Vial ONE (13:59)
[2019-03-27] MEDS ORDERED: Digoxin 0.125 MG TAB PO SCH (14:00)
[2019-03-27 17:02] LABS: Digoxin 0.64 ng/mL (0.8-2.0)
--- NOTE | 2019-03-27 17:49 | OP ---
DATE OF PROCEDURE: 03/27/2019 PREOPERATIVE DIAGNOSES: 1. Recurrent incisional hernia about the umbilicus. 2. Floating mesh in the hernia sac. 3. End-stage renal disease, on hemodialysis. 4. Cirrhosis, controlled medically. ANESTHESIA: General, local 0.5% Marcaine with epinephrine 30 mL. PROCEDURES PERFORMED: 1. Laparoscopic adhesiolysis (omentum from the abdominal wall). 2. Laparoscopic removal of old mesh. 3. Laparoscopic closure of fascial defect, 6 cm. 4. Laparoscopic reinforcement of fascial closure with Ventralight mesh, 12 cm in diameter (15 cm round mesh cut down to a 12 cm in diameter mesh to use). DESCRIPTION OF PROCEDURE: The patient was taken to the operating room, where under general anesthesia, abdomen was clipped of hair, prepared with ChloraPrep, and draped in routine fashion. Local anesthetic was infiltrated in the skin and subcutaneous tissue about all port sites. The subxiphoid incision made. Pneumoperitoneum to 15 mmHg obtained with the Veress needle, replaced with an 11 port with a balloon catheter. The laparoscope inserted. Bilateral far lateral subcostal incision made and 8-mm port was placed. The robot was docked and robot incisional hernia repair undertaken. Cautery used to free omental adhesions from the hernia sac. A large sheet of mesh floating, attached to the hernia sac and adjacent fascia was removed using hot cautery. The mesh had to be cut down into 3 strips to enable removal. Mesh was removed with some difficulty. Pneumoperitoneum reduced to 8 mmHg and fascia approximated with continuous suture of #1 V-Loc suture. Once this was closed, another 0 V-Loc suture was used to further approximate the fascia. A 15 round Ventralight mesh was then cut down to 12 cm in diameter round mesh, placed intra-abdominally, oriented properly with coated side against the viscera. Mesh was secured, centered about the fascial closure, approximating the mesh to the abdominal wall with continuous suture of #2-0 V-Loc suture. Good hemostasis was noted. At the end of the procedure, the patient appeared some bradycardia episodes, requiring treatment. Otherwise, he tolerated the procedure well. Pneumoperitoneum reduced. Subxiphoid fascia approximated with 0 Vicryl with UR needle [id number]. Good hemostasis noted. Pneumoperitoneum had been reduced. All skin incisions were approximated with interrupted subdermal 4-0 Monocryl and [place] glue applied. Job ID: [id number]
--- NOTE | 2019-03-27 20:06 | PDOC.HOSPP ---
- Subjective Subjective: is getting HD now, fully oriented and no chest pain, palp or sob moves all extremities - Objective Vital Signs & Weight: Vital Signs (12 hours) Temp Pulse Resp BP Pulse Ox 03/27/19 19:17 97.8 F 70 16 120/56 L 100 03/27/19 18:46 64 03/27/19 13:50 98.5 F 64 16 108/53 L 98 Weight Weight 215 lb Result Diagrams: 03/27/19 06:26 03/27/19 06:26 Additional Labs: Accuchecks 03/27/19 03/27/19 16:40 14:30 POC Glucose 95 167 H ROS - Review of Systems All systems: All other ROS were reviewed and found negative. Constitutional: denies: fever, chills, sweats, weakness, malaise, other Eyes: denies: pain, vision change, conjunctivae inflammation, eyelid inflammation, redness, other ENT: denies: ear pain, ear discharge, nose pain, nose discharge, nose congestion , mouth pain, mouth swelling, throat pain, throat swelling, other Respiratory: denies: cough, dry, shortness of breath, hemoptysis, SOB with excertion, pleuritic pain, sputum, wheezing, other Cardiovascular: denies: chest pain, palpitations, orthopnea, paroxysmal noc. dyspnea, edema, light headedness, other Gastrointestinal: denies: nausea, vomitting, abdominal pain, diarrhea, constipation, melena, hematochezia, other Genitourinary: denies: dysuria, frequency, incontinence, hematuria, retention, other Musculoskeletal: reports: other (abd surg site pain). denies: neck pain, shoulder pain, arm pain, back pain, hand pain, leg pain, foot pain Skin: denies: rash, lesions, sabiha, bruising, other Neurological: reports: other (chronic trigger finger on right hand plus prior finger amputation). denies: weakness, numbness, incoordination, change in speech, confusion, seizures - Medication Medications: Active Medications Generic Name Dose Route Start Last Admin Trade Name Freq PRN Reason Stop Dose Admin Digoxin 0.125 mg 03/27/19 14:00 03/27/19 18:46 Lanoxin PO 0.125 mg Q2DAYS HAO Administration - Exam NAD, awake alert Eye: PERRL, anicteric sclera ENT: no oropharyngeal lesions, dry oral mucosa Neck: supple, no JVD Heart: RRR, no murmur Respiratory: no wheezes, no rales, no ronchi Gastrointestinal: soft, non-distended (surgical site over umbilical area has clean dressing) Extremities: no clubbing, no edema Skin: normal turgor, no lesions Neurological: CN's grossly intact, no focal deficits Musculoskeletal: normal tone, normal strength Psychiatric: normal affect, A&O x 3 Hosp A/P (1) Bradycardia Code(s): R00.1 - BRADYCARDIA, UNSPECIFIED Status: Resolved Plan: post op bradycardia requiring atropine iv has resolved now (2) S/P repair of ventral hernia Code(s): Z98.890 - OTHER SPECIFIED POSTPROCEDURAL STATES; Z87.19 - PERSONAL HISTORY OF OTHER DISEASES OF THE DIGESTIVE SYSTEM Status: Acute (3) Anemia of renal disease Code(s): N18.9 - CHRONIC KIDNEY DISEASE, UNSPECIFIED; D63.1 - ANEMIA IN CHRONIC KIDNEY DISEASE Status: Chronic (4) Chronic systolic heart failure, ACC/AHA stage C Code(s): I50.22 - CHRONIC SYSTOLIC (CONGESTIVE) HEART FAILURE Status: Chronic Plan: ef around 30% based on echo 07/2018 at 's office (5) Diabetes type 2, controlled Code(s): E11.9 - TYPE 2 DIABETES MELLITUS WITHOUT COMPLICATIONS Status: Chronic Qualifiers: Diabetes mellitus usp insulin use: without usp use Diabetes mellitus complication status: with unspecified complications Qualified Code(s) : E11.8 - Type 2 diabetes mellitus with unspecified complications (6) Dyslipidemia Code(s): E78.5 - HYPERLIPIDEMIA, UNSPECIFIED Status: Chronic (7) ESRD on hemodialysis Code(s): N18.6 - END STAGE RENAL DISEASE; Z99.2 - DEPENDENCE ON RENAL DIALYSIS Status: Chronic (8) Hypertension Code(s): I10 - ESSENTIAL (PRIMARY) HYPERTENSION Status: Chronic Qualifiers: Hypertension type: essential hypertension Qualified Code(s): I10 - Essential (primary) hypertension (9) PVD (peripheral vascular disease) Code(s): I73.9 - PERIPHERAL VASCULAR DISEASE, UNSPECIFIED Status: Chronic Plan: prior stent to right LE (10) CAD (coronary artery disease) Code(s): I25.10 - ATHSCL HEART DISEASE OF [place] CORONARY ARTERY W/O ANG PCTRS Status: Acute Qualifiers: Coronary Disease-Associated Artery/Lesion type: [place] artery [place] vs. transplanted heart: [place] heart Associated angina: without angina Qualified Code(s): I25.10 - Atherosclerotic heart disease of [place] coronary artery without angina pectoris Plan: prior stent+, last stress test 02/26/2019 showed fixed defect in inf wall, tid of 0.9 - Plan hemostable now dig levels are normal, he takes it on alt days hold night dose of coreg, may restart at a lower dose in am continue aspirin, norvasc, cozaar, lipitor will f/u Had laparoscopic robotic recurrent ventral hernia repair this afternoon by , post surgery developed bradycardia requiring atropine iv and was sob as well. He is currently stable with heart rate trending in the 60's.
[2019-03-27] MEDS ORDERED: Aspirin 81 mg Enteric Coated Tablet PO SCH (21:00)
[2019-03-27] MEDS ORDERED: Carvedilol 25 MG TAB PO SCH (21:00)
[2019-03-27] MEDS ORDERED: Atorvastatin Calcium 20 MG TAB PO SCH (21:00)
--- NOTE | 2019-03-28 00:52 | CON ---
DATE OF CONSULTATION: PRIMARY CARE PHYSICIAN: I do not know who is the patient's primary care doctor. PRIMARY FAN MAIL EDITOR: The patient's primary trust and estates attorney is Dr. Rizvi. The patient's primary trust and estates attorney in the [facility] is going to be Dr. Yu Mcintosh. REASON FOR CARDIOLOGY CONSULT: Postop bradycardia. HISTORY OF PRESENT ILLNESS: Mr. Vaughn is a 58-year-old male with a significant history of coronary artery disease with stent placement and peripheral artery disease with stent placement in right calf in 2010, end-stage renal disease with hemodialysis on Saturday, Saturday and Saturday, hypertension, hyperlipidemia, and diabetes type 2. The patient underwent hernia repair today by Dr. Becerra. Postop, the patient's heart rate is down to 40s and the patient was given dobutamine drip and atropine x2. The patient was almost intubated; however, the patient's condition was good and stable, so the patient was transferred to observation unit for overnight to continue monitor for the patient on the telemetry. At this moment, the patient's telemetry record is showing a sinus rhythm with heart rate of 60s. The patient had a history of chronic systolic heart failure and had defibrillator placement in 2011. He just has the defibrillator generator change out about one month ago by Dr. Rizvi. He already followed up with Dr. Rizvi in March 2019. He was told the patient's defibrillator functions well. He has a [employer] AICD. Prior to this hospitalization, the patient denied any chest pain, heaviness, tightness, dizziness, lightheadedness or any other cardiac complaints. The patient underwent stress test in January 2014, shows abnormal perfusion study with a fixed inferior wall defect with scar and akinesis and global hypokinesis and a TID 0.92. The patient had echocardiogram done in July 2018 with EF 25% to 30%, mild mitral valve regurgitation, severe dilated left atrium. The patient had a right heart catheterization in 2016, showing normal right heart filling pressure, pulmonary hypertension, normal cardiac output. The patient has a history of end-stage renal disease, which is managed by Dr. Arthur. He is on dialysis on Saturday, Saturday, and Saturday. He was declined for kidney transplant due to worsening of his cardiac function. His potassium today was 5.7, and the patient's dig level we are checking at this moment. PAST MEDICAL HISTORY: 1. Chronic systolic heart failure with EF of 25% to 30%. The patient has a defibrillator. 2. End-stage renal disease, with hemodialysis Saturday, Saturday, and Saturday. 3. Diabetes, type 2. 4. Hypertension. 5. Hyperlipidemia. 6. Fibrotic liver. 7. Peripheral artery disease. 8. Pulmonary hypertension. PAST SURGICAL HISTORY: 1. Hernia repair in 2017 and today on March 27, 2019. 2. Cardiac stent placement x2 and right calf stent placement in 2010. The patient has a [employer] single defibrillator, was done in 2011. 3. Endomyocardial biopsy. 4. Liver biopsy. 5. Status post second right finger amputation in 2017. FAMILY HISTORY: There are no significant cardiac-related family history in his family. His mother with unknown causes at age of 40s. The patient's father around 80s. SOCIAL HISTORY: He is . He lives with his . He does not have any children. He denied any alcohol, tobacco or illicit drug abuse. ALLERGIES: HE IS ALLERGIC TO AZITHROMYCIN, CEFAZOLIN, AND LISINOPRIL. HOME MEDICATIONS: 1. Atorvastatin 20 mg once a day. 2. Losartan 50 mg once a day. 3. Omeprazole 20 mg once a day as needed. 4. Norvasc 10 mg once a day. 5. Aspirin 81 mg once a day. 6. Digoxin 0.125 mg every 2 days. 7. Carvedilol 25 mg twice a day. 8. Plavix 75 mg once a day. REVIEW OF SYSTEMS: 12-point review of systems is negative unless otherwise mentioned in the HPI. PHYSICAL EXAMINATION: VITAL SIGNS: Blood pressure 108/53, temperature 98.5, pulse 64 with sinus rhythm, respiratory rate 16, and O2 saturation 98% with room air. GENERAL: The patient is alert and oriented x4, not in acute distress. HEENT: Head, normocephalic and atraumatic. Eyes, extraocular muscle movement intact. ENT and mouth, oral and nasal mucosa moist without lesion. NECK: Supple. Normal range of motion. No JVD. RESPIRATORY: Clear to auscultate bilaterally. No wheezing, rales, or rhonchi noted. CARDIOVASCULAR: Regular rate and rhythm. Normal S1 and S2. There is no S3 or S4. No significant murmur, hives or thrill noted. He has 2+ pulses in bilateral upper and lower extremities. No edema in the lower extremities. The patient had an AV fistula on the right upper arm. The patient is undergoing dialysis at this moment. Carotid pulses are present without bruit or thrill. SKIN: Warm and dry, but the patient had a dark skin, significant, that is secondary to chronic kidney disease. ABDOMEN: The patient refused to touch his abdomen due to status post hernia repair today, but the patient denied any nausea or vomiting at this moment. MUSCULOSKELETAL: The patient is able to move all extremities without difficulty. The patient denied claudication. NEUROLOGIC: The patient is alert and oriented x4, nonfocal. PSYCHIATRIC: The patient's mood is appropriate, but the patient is complaining of fatigue. LABORATORY DATA: WBC 3.8, hemoglobin 10.7, hematocrit 31.0, and platelet 74, he is having low platelet since August 2018. Sodium 135, potassium 5.7, BUN 38, creatinine 8.63, and glucose 142. AST 31, ALT 47, and alkaline phosphatase 156. Digoxin 0.64. ASSESSMENT AND PLAN: 1. Postoperative bradycardia. The patient's heart rate is down to the 40s. We would like to order the [employer] defibrillator interrogation as soon as possible and may need to increase the lower rate to the 60. It is possible the patient has lower rate sitting around the 40s if he is not using his defibrillator that much. The patient's digoxin level is 0.64, which is within the normal range, and the patient's potassium is 5.7. He is receiving hemodialysis at this moment. The patient's vital signs are stable. Otherwise, we would like to continue to monitor on the telemetry over the night. 2. Chronic systolic heart failure. The patient's condition is stable at this moment. He is on dialysis on Saturday, Saturday, and Saturday, which is managed by Dr. Arthur. 3. Hypertension. The patient's blood pressure is stable with current medication. 4. Hyperlipidemia. The patient is on atorvastatin 20 mg once a day. 5. Diabetes, type 2. He is on a.c. and at bedtime blood glucose check with sliding scale insulin order. 6. End-stage renal disease with hemodialysis on Saturday, Saturday, and Saturday, which is managed by Dr. Arthur. 7. Pancytopenia. The patient's platelets have been lower than normal since August 2018. He is on aspirin 81 mg and Plavix 75 mg once a day, which the patient has been tolerating well at this moment, so we would like to continue those medications unless the patient has any symptoms, we would like to discontinue. 8. Peripheral artery disease. The patient's condition is stable at this moment. The patient denied any claudication of the lower extremities. The patient had pulses present in the bilateral lower extremities. Thank you very much for allowing the Cardiology Service to participate in the care of this patient. We will follow along the patient's care team and make further recommendations as appropriate. Job ID: [id number]
--- NOTE | 2019-03-28 01:47 | CON ---
DATE OF CONSULTATION: 03/27/2019 INDICATION FOR CONSULTATION: A 58-year-old gentleman with bradycardia post hernia repair. HISTORY OF PRESENT ILLNESS: This very unfortunate elderly middle-aged gentleman who has history of coronary artery disease, cardiomyopathy status post AICD implant has end-stage renal disease, was seen for incisional hernia repair today and during the procedure intraoperatively, developed a bradycardia with a heart rate apparently in the 40s. There is no clear documentation of this. He has one rhythm strip with the heart rate does not appear to be in the 40s at that time. He does have an AICD implant, which has the lower rate set at 40 and he would not be able to pace less than 40. He does have a sinus rhythm and at this time does not appear to have any significant abnormalities otherwise. His heart rate was in the 60s and with a sinus rhythm and no acute changes otherwise. I have asked the district representative from the [employer] AICD to come and adjust the lower rate to 50 at least during this hospitalization and then we can change it back to 40 once he becomes more stable. Then, I suspect that this is what the etiology is as he has dropped down to the 40s, but would be pacing otherwise. He does have a history of coronary artery disease, but at this time appears to be stable. He had no complaints of chest pain. EKG is unremarkable for any evidence of ischemia. PAST MEDICAL HISTORY: Please refer to the notes dictated by my nurse practitioner. At this time, the patient is undergoing dialysis. SOCIAL HISTORY: Please refer to the notes dictated by my nurse practitioner. At this time, the patient is undergoing dialysis. FAMILY HISTORY: Please refer to the notes dictated by my nurse practitioner. At this time, the patient is undergoing dialysis. REVIEW OF SYSTEMS: Please refer to the notes dictated by my nurse practitioner. At this time, the patient is undergoing dialysis. MEDICATIONS: Please refer to the notes dictated by my nurse practitioner. At this time, the patient is undergoing dialysis. ALLERGIES: PLEASE REFER TO THE NOTES DICTATED BY MY NURSE PRACTITIONER. AT THIS TIME, THE PATIENT IS UNDERGOING DIALYSIS. PHYSICAL EXAMINATION: GENERAL: Reveals a well-developed, well-nourished gentleman, who is in no acute distress at this time. VITAL SIGNS: Stable. Blood pressure is 108/53, heart rate is in the 60s at this time. O2 saturation 98%. He is afebrile. Respiratory rate 16. HEENT: Show the head to be normocephalic and atraumatic. Carotid pulses are present. I do not hear any significant bruits. CHEST: Clear to auscultation without rales, rhonchi, or wheezing. CARDIOVASCULAR: Reveals a regular rate and rhythm. There are no gross murmurs noted. He has a well-healed surgical incision over the left chest area where he had a previous defibrillator change out which was recently performed. This is well healed. ABDOMEN: Soft. He has a surgical dressing in place. I did not hear any significant bowel sounds at this time. EXTREMITIES: Show evidence of a right arm fistula. He is missing the 1st digit of the right hand as well as he has had a forefoot amputation of the right foot. He has no lower extremity edema at this time. NEUROLOGIC: He appears to be fully intact. LABORATORY DATA: Please refer to the notes dictated by the nurse practitioner. IMPRESSION: 1. Middle-aged gentleman with end-stage renal disease, who is on hemodialysis at this time, who underwent a hernia repair earlier today, and developed bradycardia, but it would be unlikely he would go less than 40 as the lower rate on the device will be set at 40. I do not see any evidence that he was pacing. However, he has had some high thresholds recently on the leads, but we will set the lower rate to 50 and if he has any rates less than 50, then certainly he should be pacing. We will certainly re-evaluate that tomorrow. Otherwise, he remains stable from a cardiac standpoint. 2. Coronary artery disease which appears to be stable. There is no indication he has any ongoing ischemia at this time and this remains very stable. 3. End-stage renal disease, which is dealt with by the primary care service or by Nephrology. 4. Status post hernia repair, and this appears to be stable at this time. Job ID: [id number]
[2019-03-28] MEDS: Sodium Chloride 0.9% 1,000 ML IV SCH ×2 (03:24→08:22)
[2019-03-28] MEDS ORDERED: Acetaminophen 325 MG TAB PO PRN (03:50)
[2019-03-28 04:24] LABS: #Eosinphils 0.1 thou/uL (0.0-0.7); #Lymphocytes 0.6 thou/uL (1.20-3.40); #Monocytes 0.3 thou/uL (0.11-0.59); #Neutrophils 4.9 thou/uL (1.40-6.50); %Eosinophils 2.1 % (0.0-10.0); %Lymphocytes 10.4 % (21.0-51.0); %Monocytes 4.4 % (0.0-10.0); %Neutrophils 83.2 % (42.0-75.0); Hemoglobin 11.7 g/dL (14.0-18.0); Mean Corpuscular HGB CONC 34.7 g/dL (32.0-36.0); Mean Corpuscular Hemoglobin 32.1 pg (27.0-31.0); Mean Corpuscular Volume 92.6 fL (78.0-98.0); Mean Platelet Volume 9.4 fL (7.4-10.4); Platelet Count 79 thou/uL (130-400); RBC Distribution Width 12.8 % (11.5-14.5); Red Blood Cell (RBC) Count 3.63 mill/uL (4.70-6.10); White Blood Cell (WBC) Count 5.9 thou/uL (4.8-10.8)
[2019-03-28 04:39] LABS: Lactic Acid 1.3 mmol/L (0.5-2.2)
[2019-03-28 04:41] LABS: Anion Gap 17 mmol/L (10-20); BUN (Urea Nitrogen) 30 mg/dL (8.4-25.7); Calc. Creatinine Clearance 17 mL/min (70-130); Calcium 9.2 mg/dL (7.8-10.44); Carbon Dioxide 26 mmol/L (22-29); Chloride 93 mmol/L (98-107); Estimated GFR-MDRD 9; Glucose 177 mg/dL (70-105); Magnesium 1.9 mg/dL (1.6-2.6); Potassium 5.7 mmol/L (3.5-5.1); Sodium 130 mmol/L (136-145)
--- NOTE | 2019-03-28 08:06 | RAD ---
CHEST 1 VIEW: Date: 03/28/19 INDICATION: Fever, cough, and cough production. COMPARISON: Prior exam dated 08/06/18. FINDINGS: Single lead AICD is unchanged. Mild cardiomegaly is stable. Lungs are clear. No pleural effusion or p neumothorax evident. No acute osseous abnormality is evident. IMPRESSION: Stable cardiomegaly. POS: BH
--- NOTE | 2019-03-28 08:57 | PDOC.CTH ---
Cardiology Progress Note - Subjective The pt seen and examined. No overnight events. No cardiac complaints. - Objective Vital Signs Temp Pulse Resp BP Pulse Ox 03/28/19 07:25 98.9 F 85 15 107/58 L 100 03/28/19 03:07 101.3 F H 90 15 132/60 100 03/27/19 23:04 97.4 F L 75 16 130/63 100 Weight 215 lb - Physical Examination General/Neuro: alert & oriented x3 Neck: no JVD present Lungs: CTA Heart: RRR Abdomen: soft Extremities: other: - Telemetry Telemetry Rhythm: SR - Labs Result Diagrams: 03/28/19 03:56 03/28/19 03:53 - Assessment/Plan 1. Bradycardia - His previous AICD low HR setting was 40, which was reprogramed to 50 yesterday. AICD Interrogation did not show any arrhythmia or pauses. 2. S/P repair of ventral hernia 3. Chronic systolic HF with EF 25-30% 4. 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 CAD and PAD with hx of stent in RCA and RLE in 2011 - on Plavix, ASA, Bblocker,Lipitor and ARB. 6. HTN - stable 7. HLD - on Statin 8. DM type 2 9. ESRD with HD on MWF 10. Fever - CXR was taken this AM MAR reviewed * From Cardiac standpoint, the pt is stable to d/c and f/u with Dr Rizvi, his medical assistant dermatology. Review of Systems - Review of Systems Constitutional: reports: no symptoms reported EENTM: reports: no symptoms reported Respiratory: reports: no symptoms reported Cardiac (ROS): reports: no symptoms reported ABD/GI: reports: no symptoms reported : reports: no symptoms reported Musculoskeletal: reports: no symptoms reported
[2019-03-28] MEDS ORDERED: Losartan 25 MG TAB PO SCH ×3 (09:00→10:00)
[2019-03-28] MEDS ORDERED: Clopidogrel Bisulfate 75 MG TAB PO SCH (09:00)
[2019-03-28] MEDS ORDERED: Amlodipine 10 MG TAB PO SCH ×2 (09:00)
[2019-03-28] MEDS ORDERED: Carvedilol 6.25 MG TAB PO SCH ×2 (10:30→17:00)
[2019-03-28 11:39] VITALS: BP 127/60; TEMP 98.1
--- NOTE | 2019-03-28 18:37 | DIS ---
DATE OF ADMISSION: 03/27/2019 DATE OF DISCHARGE: 03/28/2019 DISCHARGE DISPOSITION: Home. PRIMARY DISCHARGE DIAGNOSIS: Postop bradycardia, resolved. SECONDARY DISCHARGE DIAGNOSES: History of automatic implantable cardioverter-defibrillator with pacemaker; end-stage renal disease, on hemodialysis; chronic anemia due to renal disease; status post repair of ventral hernia; history of congestive heart failure with ejection fraction of around 30%, follows up with Dr. Rizvi; diabetes mellitus type 2; dyslipidemia; hypertension; peripheral vascular disease with prior stent to right lower extremity; coronary artery disease with last stress test on 02/26/2019 showing fixed defect and inferior wall TID of 0.9. PROCEDURES DONE DURING HOSPITALIZATION: The patient has had laparoscopic adhesiolysis and removal of old mesh with closure of facial defect with ventral hernia and laparoscopic reinforcement with Ventralight mesh 12 cm in diameter done by Dr. Becerra on 03/27/2019. H and H 11 and 33, platelet count 79 with 83% neutrophils, MCV is 92, BUN 30, creatinine 6.3, serum bicarb 26, procalcitonin 1.6, dig level 0.64. DISCHARGE MEDICATIONS: 1. Norvasc 10 mg daily. 2. Aspirin 81 mg p.o. daily. 3. Atorvastatin 20 mg p.o. q.p.m. 4. Plavix 75 mg p.o. daily. 5. Digoxin 0.125 mg p.o. on alternate days. 6. Losartan 50 mg p.o. daily. 7. Omeprazole 20 mg p.o. daily. 8. Coreg 12.5 mg p.o. twice daily. 9. Olton p.r.n. for pain. 10. Ultram p.r.n. for pain. ALLERGIES: TO AZITHROMYCIN, CEFAZOLIN, AND LISINOPRIL. DISCHARGE PLAN: The patient to follow up with Dr. Becerra as advised and he needs to follow up with Dr. Rizvi, his psychiatric arnp, in 2 weeks and primary care physician in 1 week. BRIEF COURSE DURING HOSPITALIZATION: The patient electively came to get operated on recurrent ventral hernia by Dr. Becerra. Postop, the patient developed a bradycardic episode and had to be given atropine. In view of this, the patient was hospitalized under observation on telemetry. He has remained hemodynamically stable all through his stay with no episodes of further bradycardia on the telemetry floor. His pacemaker defibrillator was interrogated with no arrhythmias noted. His lower limit on pacing has been increased from 40 to 50. This was reprogramed by Dr. Mcintosh on the . He has had hemodialysis done post surgery yesterday. He is ambulating and eating well prior to discharge. He is hemodynamically stable and will be shortly discharged home. Please note, I have seen and examined the patient on the day of discharge. Job ID: [id number] MTDD
[2019-03-29] MEDS ORDERED: Losartan 25 MG TAB PO SCH (09:00)
--- NOTE | 2019-03-30 09:00 | EKG ---
Test Reason : Blood Pressure : / mmHG Vent. Rate : 065 BPM Atrial Rate : 065 BPM P-R Int : 196 ms QRS Dur : 114 ms QT Int : 428 ms P-R-T Axes : -05 007 016 degrees QTc Int : 445 ms Normal sinus rhythm Normal ECG When compared with ECG of 29-DEC-2018 12:01, No significant change was found Confirmed by DR. David MILLS ([id number]) on 03/30/2019 9:00:33 AM Referred By: MARY ELLEN Confirmed By:DR. David MILLS
== END 2019-03-28 12:25 | disposition home or self-care (01) ==
LOC: SDC 05:44 → 2SW 14:08
PROVIDERS: ADMIT Specialist; ATTEND Specialist
PROC: 0WUF4JZ Supplement Abdominal Wall with Synthetic Substitute, Percutaneous Endoscopic Approach (ICD-10-PCS; principal; 2019-03-27)
DX: K43.2 Incisional hernia without obstruction or gangrene (principal); K66.0 Peritoneal adhesions (postprocedural) (postinfection); I97.191 Other postprocedural cardiac functional disturbances following other surgery; I13.2 Hypertensive heart and chronic kidney disease with heart failure and with stage 5 chronic kidney disease, or end stage renal disease; E11.22 Type 2 diabetes mellitus with diabetic chronic kidney disease; N18.6 End stage renal disease; I50.22 Chronic systolic (congestive) heart failure; D63.1 Anemia in chronic kidney disease; K74.60 Unspecified cirrhosis of liver; I25.10 Atherosclerotic heart disease of native coronary artery without angina pectoris; E78.5 Hyperlipidemia, unspecified; D61.818 Other pancytopenia; E11.51 Type 2 diabetes mellitus with diabetic peripheral angiopathy without gangrene; I25.5 Ischemic cardiomyopathy; K21.9 Gastro-esophageal reflux disease without esophagitis; Z99.2 Dependence on renal dialysis; Z79.02 Long term (current) use of antithrombotics/antiplatelets; Z79.82 Long term (current) use of aspirin; Z79.899 Other long term (current) drug therapy; Z88.1 Allergy status to other antibiotic agents; Z88.8 Allergy status to other drugs, medicaments and biological substances; Z95.5 Presence of coronary angioplasty implant and graft; Z95.810 Presence of automatic (implantable) cardiac defibrillator; Z95.820 Peripheral vascular angioplasty status with implants and grafts; Z98.890 Other specified postprocedural states
CPT/HCPCS: 49656; 71045; 80048; 80053; 80162; 82962 ×2; 83605; 83735; 84145; 85025 ×2; 86850; 86900; 86901; 87040; 93005; 97139; G0378 ×2; 36415; 36416; 90935; 93010; G0257; J0131; J0461; J1265; J1885; J1956; J2001; J2370; J2405; J3010; J3490; S0028

== ENCOUNTER 2019-09-04 06:07 | Day surgery (SDC) | payer MEDICARE ==
[2019-09-03 09:55] VITALS: BMI 30.6
[2019-09-04] MEDS ORDERED: Fentanyl 100 MCG/2 ML VIAL ONE ×2 (06:29→09:46)
[2019-09-04] MEDS ORDERED: Famotidine/PF 20 mg/2ml Vial ONE (06:30)
--- NOTE | 2019-09-04 06:39 | HP ---
HISTORY OF PRESENT ILLNESS: Blue Vaughn underwent laparoscopic repair of incisional hernia in umbilical area with 15 cm round mesh, cut down to 12 cm Ventralight, and on 03/27/2019, laparoscopic removal of old mesh was performed. The patient states he had a coughing spell and developed a recurrent hernia in his left paraumbilical area slightly superiorly. On exam, he does have a hernia with a palpable hernia defect about a centimeter and a half. Plan is to repair this robotically. He does have medically controlled cirrhosis and end-stage renal disease, on maintenance dialysis. The patient initially presented on 07/07/2017 with incarcerated umbilical hernia and a small bowel obstruction and Dr. Rojas attended this, repaired the incarcerated hernia with an 11 x [address] mesh patch. Postoperatively, he developed a seroma on 07/23/2017 and I saw him and the seroma was evacuated, pulse irrigated, and a drain secured. This was eventually removed on 11/01/2017. The patient underwent a DRIL procedure right arm using a segment of the basilic vein. His index finger had to be amputated. 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 ALLERGIES: AZITHROMYCIN, CEFAZOLIN, AND LISINOPRIL. MEDICATIONS: 1. Amlodipine. 2. Carvedilol. 3. Atorvastatin. 4. Aspirin. 5. Losartan. 6. Digoxin. 7. Tramadol. SOCIAL HISTORY: Tobacco, none. Alcohol, none. PAST MEDICAL HISTORY: Diabetes mellitus type 2, end-stage renal disease on maintenance dialysis, cirrhosis, dialyzes Saturday, Saturday, and Saturday followed by Dr. Kushal Arthur. PAST SURGICAL HISTORY: Right arm AV fistula, proximal radial artery outflow cephalic vein, DRIL procedure this year using a segment of the basilic vein right arm, hernia repair history as noted above. PHYSICAL EXAMINATION: VITAL SIGNS: 220 pounds, 81 inches. Blood pressure 176/82 and pulse 81. HEAD, EARS, EYES, NOSE, AND THROAT: Unremarkable. LUNGS: Clear to auscultation. CARDIAC: Rhythm rate and rhythm without murmur or gallop. ABDOMEN: Soft. Incisional hernia recurrent, left to midline just above the umbilical level 1.5 to 2 cm defect easily reducible. ASSESSMENT AND PLAN: 1. Recurrent incisional hernia. Plan robot repair. Mesh reinforced as indicated. Plan is this as an outpatient. 2. End-stage renal disease, dialyzes at [facility] on Saturday, Saturday, and Saturday at 10:00 a.m. 3. Cirrhosis. 4. Hypertension. Job ID: [id number]
[2019-09-04] MEDS ORDERED: SUGAMMADEX SODIUM 500 MG/5 ML VIAL ONE (06:42)
[2019-09-04 06:48] LABS: #Eosinphils 0.2 thou/uL (0.0-0.7); #Lymphocytes 0.8 thou/uL (1.20-3.40); #Monocytes 0.2 thou/uL (0.11-0.59); #Neutrophils 2.8 thou/uL (1.40-6.50); %Basophils 0.5 % (0.0-1.0); %Eosinophils 3.9 % (0.0-10.0); %Lymphocytes 20.5 % (21.0-51.0); %Monocytes 5.7 % (0.0-10.0); %Neutrophils 69.4 % (42.0-75.0); Hemoglobin 9.1 g/dL (14.0-18.0); Mean Corpuscular HGB CONC 33.1 g/dL (32.0-36.0); Mean Corpuscular Hemoglobin 31.2 pg (27.0-31.0); Mean Corpuscular Volume 94.1 fL (78.0-98.0); Mean Platelet Volume 8.9 fL (7.4-10.4); Platelet Count 84 thou/uL (130-400); Red Blood Cell (RBC) Count 2.92 mill/uL (4.70-6.10)
[2019-09-04] MEDS ORDERED: Acetaminophen 500 MG TAB ONE (06:52)
[2019-09-04] MEDS ORDERED: Gabapentin 300 MG CAP ONE (06:52)
[2019-09-04 07:07] LABS: Anion Gap 16 mmol/L (10-20); BUN (Urea Nitrogen) 26 mg/dL (8.4-25.7); Calc. Creatinine Clearance 17 mL/min (70-130); Calcium 9.3 mg/dL (7.8-10.44); Carbon Dioxide 33 mmol/L (22-29); Chloride 94 mmol/L (98-107); Estimated GFR-MDRD 9; Glucose 164 mg/dL (70-105); Potassium 4.7 mmol/L (3.5-5.1); Sodium 138 mmol/L (136-145)
[2019-09-04] MEDS ORDERED: Lidocaine 1% w/Epinephrine 1:100K 20 ML VIAL ONE (07:21)
[2019-09-04] MEDS ORDERED: Bupivacaine PF 0.5% 30 ML VIAL ONE (07:21)
[2019-09-04] MEDS ORDERED: Levofloxacin 500 mg/D5W 100 ml Premix Bag ONE (07:27)
[2019-09-04] MEDS ORDERED: Promethazine HCl 25 MG/ML VIAL IM PRN (09:24)
[2019-09-04] MEDS ORDERED: Promethazine HCl 25 MG/ML VIAL SLOW IVP PRN (09:24)
[2019-09-04] MEDS ORDERED: Ondansetron HCl/PF 4 MG/2 ML Vial IVP PRN (09:24)
--- NOTE | 2019-09-04 10:18 | OP ---
DATE OF PROCEDURE: 09/04/2019 PREOPERATIVE DIAGNOSES: Recurrent incisional hernia, umbilical area, cirrhosis, renal failure. POSTOPERATIVE DIAGNOSES: Recurrent incisional hernia, umbilical area, cirrhosis, renal failure. PROCEDURE PERFORMED: Robot, laparoscopic 8 cm oval Ventralight mesh repair, reinforcement of fascial closure. ANESTHESIA: General, local 0.5% Marcaine 30 mL mixed with 1% Xylocaine with epinephrine 30 mL, 30 mL volume mixture used. DESCRIPTION OF PROCEDURE: The patient was taken to the operating room, where under general anesthesia, abdomen was prepared with ChloraPrep and draped in routine fashion. Bilateral far lateral incision was made. Pneumoperitoneum to 15 mmHg obtained with a Veress needle and pneumoperitoneum to 15 mmHg obtained and replaced with 8 mm port. Left subxiphoid incision made and 11 mm balloon port placed, the laparoscope inserted. The robot docked. Robot adhesiolysis was undertaken using cautery for hemostasis, freeing omental adhesions from anterior abdominal wall identifying a 3 cm defect to the left of midline umbilical area. Pneumoperitoneum reduced to 9 mmHg and continuous suture #1 V-Loc suture used to approximate this fascia to and fro incorporating bites of the large hernia sac to decompress this. Once this was closed, the mesh obtained, placed against the abdominal wall, centered about the hernia defect, secured with continuous suture of 2-0 V-Loc. Once this was accomplished, ascites evacuated 2.5 L. Sheldon and sutures removed. My counts correct and subxiphoid fascia was approximated with 0 Vicryl UR needle. Skin incisions approximated with subdermal 4-0 Monocryl and Priddy glue applied. Job ID: [id number]
[2019-09-04] MEDS ORDERED: Lidocaine 1% PF 5 ML VIAL ONE (10:45)
[2019-09-04] MEDS ORDERED: Metoclopramide HCl 10 MG/2 ML VIAL ONE (10:45)
[2019-09-04] MEDS ORDERED: ePHEDrine/0.9% NaCl/PF SYRINGE 50 mg/10 ml ONE (10:45)
[2019-09-04] MEDS ORDERED: PHENYLEPHRINE-NS 100 MCG/ML 10 ML SYRINGE ONE (10:45)
[2019-09-04] MEDS ORDERED: Dexamethasone 20 MG/5 ML VIAL ONE (10:45)
[2019-09-04] MEDS ORDERED: Rocuronium Bromide 10 MG/ML (10ML VIAL) ONE (10:45)
[2019-09-04] MEDS ORDERED: Ondansetron PF 4 MG/2 ML Vial ONE (10:45)
== END 2019-09-04 11:30 | disposition home or self-care (01) ==
LOC: SDC 06:07
PROVIDERS: ATTEND Specialist
PROC: 0WUF4JZ Supplement Abdominal Wall with Synthetic Substitute, Percutaneous Endoscopic Approach (ICD-10-PCS; principal; 2019-09-04)
DX: K43.2 Incisional hernia without obstruction or gangrene (principal); I12.0 Hypertensive chronic kidney disease with stage 5 chronic kidney disease or end stage renal disease; E11.22 Type 2 diabetes mellitus with diabetic chronic kidney disease; N18.6 End stage renal disease; K74.60 Unspecified cirrhosis of liver; K21.9 Gastro-esophageal reflux disease without esophagitis; Z79.02 Long term (current) use of antithrombotics/antiplatelets; Z79.82 Long term (current) use of aspirin; Z79.899 Other long term (current) drug therapy; Z88.1 Allergy status to other antibiotic agents; Z88.8 Allergy status to other drugs, medicaments and biological substances; Z95.5 Presence of coronary angioplasty implant and graft; Z99.2 Dependence on renal dialysis
CPT/HCPCS: 49656; 80048; 85025; C1781; 36415; J1100; J1956; J2001; J2405; J2765; J3010; S0020; S0028

== ENCOUNTER 2019-09-13 22:12 | Observation (INO) | payer MEDICARE ==
[~2019-09-13 22:12] MED LIST changes: -Bupivacaine/Epinephrine 0.25% 30 ML VIAL ONE; -Diprivan 20 ML ONE; -Fentanyl 100 MCG/2 ML VIAL ONE; +Iopamidol-370 76% 500 ML 1 ML ONE; -Lidocaine 2% w/Epinephrine 1:200K 20 ML VIAL ONE; -Midazolam HCl 2 mg/2 ml Vial ONE; -Propofol 200 MG/20 ML VIAL ONE
[2019-09-13 22:43] LABS: #Eosinphils 0.4 thou/uL (0.0-0.7); #Lymphocytes 0.7 thou/uL (1.20-3.40); #Monocytes 0.2 thou/uL (0.11-0.59); #Neutrophils 3.7 thou/uL (1.40-6.50); %Basophils 0.7 % (0.0-1.0); %Eosinophils 7.9 % (0.0-10.0); %Lymphocytes 13.1 % (21.0-51.0); %Monocytes 3.6 % (0.0-10.0); %Neutrophils 74.7 % (42.0-75.0); Hemoglobin 9.8 g/dL (14.0-18.0); Mean Corpuscular HGB CONC 32.2 g/dL (32.0-36.0); Mean Corpuscular Hemoglobin 30.7 pg (27.0-31.0); Mean Corpuscular Volume 95.3 fL (78.0-98.0); Mean Platelet Volume 8.3 fL (7.4-10.4); Platelet Count 133 thou/uL (130-400); Red Blood Cell (RBC) Count 3.21 mill/uL (4.70-6.10); White Blood Cell (WBC) Count 4.9 thou/uL (4.8-10.8)
--- NOTE | 2019-09-13 22:45 | RAD ---
Chest AP view INDICATION: Dyspnea COMPARISON: March 28, 2019 FINDINGS: Lungs:There is perihilar interstitial opacities Cardiac silhouette:There is mild cardiomegaly Pulmonary vasculature:There is mild pulmonary vascular congestion Pleural spaces:No pleural effusion or pneumothorax is demonstrated. Upper abdomen:No abnormality seen. Osseous structures: No acute osseous abnormality. Additional findings:There is a stable single lead pacemaker overlying left chest wall. IMPRESSION: Findings suspicious for mild CHF
[2019-09-13] MEDS ORDERED: Nitroglycerin 2% Ointment 1 INCH/1 GM Packet ONE (22:58)
--- NOTE | 2019-09-13 23:03 | CT ---
CTA Angio Chest W WO Con 09/13/2019 10:27 PM Indication: History of recent hernia surgery with dyspnea Technique: Multiple CTA images were obtained of the thorax with IV contrast. 3-D rendering: MIP thania nstructed images were created and reviewed. Comparison: CT the abdomen and pelvis dated July 06, 2017 Findings: Pulmonary arteries: No central or segmental pulmonary embolus is evident. Heart and Aorta: There is tjep-[id number] cardiomegaly. There is prominent vascular calcifications involving the coronary arterial thoracic aorta. There is a single lead pacemaker overlying left chest wall. Mediastinum:There is gas present within the anterior mediastinum as well as within the upper anterior abdominal wall, likely postprocedural in nature from the patient's recent hernia surgery. Lungs:There are areas of subsegmental volume loss involving both lower lobes. No confluent airspace o pacity is evident. Pleural space: Clear. Upper Abdomen: There is stable hepatosplenomegaly with mild ascites within the upper abdomen. The ga llbladder surgically absent. There is scattered free air within the upper abdomen consistent patient's recent postoperative state. Osseous Structures: No acute osseous abnormality. Soft tissues:No abnormality. Other findings:None. Impression: No central or segmental pulmonary embolus. Scattered free air within the upper abdomen. Recommend correlation with patient's surgical date. Ther e is gas also present within the anterior abdominal wall which is likely postprocedural in nature. There is gas dissecting from the anterior abdominal wall into the anterior mediastinum inducing mild anterior pneumomediastinum. This is all likely is postsurgical in nature. Stable hepatosplenomegaly with mild ascites. Xchc-ib-[id number] cardiomegaly
[2019-09-13 23:10] LABS: ALT (SGPT) 44 U/L (8-55); AST (SGOT) 38 U/L (5-34); Albumin 4.3 g/dL (3.5-5.0); Alkaline Phosphatase 198 U/L (40-110); Anion Gap 19 mmol/L (10-20); BUN (Urea Nitrogen) 49 mg/dL (8.4-25.7); Bilirubin, Total 0.7 mg/dL (0.2-1.2); Calc. Creatinine Clearance 0 mL/min (70-130); Calcium 9.6 mg/dL (7.8-10.44); Carbon Dioxide 29 mmol/L (22-29); Chloride 96 mmol/L (98-107); Estimated GFR-MDRD 5; Glucose 236 mg/dL (70-105); Potassium 4.9 mmol/L (3.5-5.1); Protein, Total 8.3 g/dL (6.0-8.3); Sodium 139 mmol/L (136-145)
[2019-09-13 23:28] LABS: CKMB 3.3 ng/mL (0-6.6)
[2019-09-14] MEDS ORDERED: Ondansetron PF 4 MG/2 ML Vial IVP PRN (00:14)
[2019-09-14] MEDS ORDERED: Ondansetron ODT 4 MG TAB SL PRN (00:14)
[2019-09-14] MEDS ORDERED: Acetaminophen 325 MG TAB PO PRN (00:14)
[2019-09-14] MEDS ORDERED: HYDROcodone/Acetaminophen 5/325 mg Tablet PO PRN ×2 (00:14)
[2019-09-14 01:09] VITALS: BMI 32.1
[2019-09-14 01:51] LABS: Troponin I 0.041 ng/mL (< 0.028)
[2019-09-14 05:13] LABS: Troponin I 0.041 ng/mL (< 0.028)
[2019-09-14] MEDS ORDERED: Nitroglycerin 2% Ointment 1 INCH/1 GM Packet TOP SCH (06:00)
[2019-09-14 07:53] VITALS: TEMP 98.4
--- NOTE | 2019-09-14 08:06 | HP ---
CHIEF COMPLAINT: Abdominal pain and some shortness of breath. HISTORY OF PRESENT ILLNESS: The patient is a 59-year-old male, with a past medical history of end-stage renal disease, on dialysis, history of cirrhosis and history of peripheral vascular disease and CAD, who presents to the hospital with complaints of lower abdominal pain and shortness of breath x1 day. The patient recently had surgery on September 04 for hernia repair and last night, noticed significant amount of bruising to his lower abdominal area and started having some pain, so he wanted to come into the ER for evaluation. The patient also stated that tonight when he had his abdominal binder on and he felt that his abdominal binder was on too tight, felt short of breath when he was lying down. The patient normally goes to dialysis Saturday, Saturday, and Saturday and has been very compliant with it. He denies any fevers or chills, any nausea, vomiting, or diarrhea. He has been eating and drinking just fine. PAST MEDICAL HISTORY: As of the following; 1. Peripheral vascular disease. 2. He has a history of end-stage renal disease, on dialysis. 3. He has history of liver cirrhosis. PAST SURGICAL HISTORY: He has had a hernia repair. He has had 2 stents in his heart and a stent to his right lower extremity. He also has a defibrillator in 2014 and as I mentioned, a hernia repair and a right arm fistula. SOCIAL HISTORY: He denies any alcohol use, drug use, or smoking history. He lives with his and he is a full code. FAMILY HISTORY: No history of heart disease or stroke. ALLERGIES: HE IS ALLERGIC TO ANCEF, LISINOPRIL, AND ZITHROMAX. MEDICATIONS: As the following; 1. Carvedilol 25 mg twice a day. 2. Atorvastatin 20 mg daily. 3. Aspirin 81 mg daily. 4. Plavix 75 mg daily. 5. Losartan 25 mg daily. 6. Amlodipine 10 mg daily. 7. Digoxin 125 mcg daily. PHYSICAL EXAMINATION: VITAL SIGNS: Temperature of 98.1, oxygenation of 98%, respiratory rate 18, pulse 87, and blood pressure 194/78. GENERAL: He is awake, alert, and oriented x3, does not appear in any distress. HEENT: Normocephalic, atraumatic. No lymphadenopathy noted. Pupils are equal and reactive to light. CARDIOVASCULAR: S1 and S2 present. No murmurs, rubs, or gallops. LUNGS: Clear to auscultation. No rhonchi or wheezes noted. ABDOMEN: Soft. Bowel sounds are present x2. His laparoscopic incisions look stable and healed. He does have a large ecchymotic area starting around his lower abdomen going to his left flank area. NEUROVASCULAR: There are no focal deficits noted. SKIN: Again as I mentioned, he does have an ecchymotic area to his lower abdominal area extending to his left flank. He does have also some scabs to his lower extremity. EXTREMITIES: His pedal pulses to lower extremity are present. LABORATORY DATA: WBCs of 4.9, hemoglobin of 9.8, hematocrit of 30.6, and platelets of 133. Chemistries; sodium of 139, potassium of 4.9, BUN of 49, and creatinine of 10.20. His BNP is 1842. His troponins are mildly elevated. IMAGING DATA: He did have a CTA, which did not indicate any pulmonary embolism. However, it did indicate that he does have some free air within the upper abdomen and also some gas in the anterior abdomen wall into the anterior mediastinum. Kerz-fz-fhciyzha cardiomegaly was noted. ASSESSMENT AND PLAN: The patient is a very pleasant 59-year-old male, who presents to the hospital with complaints of abdominal pain. 1. Shortness of breath. This could be secondary to possible acute on chronic systolic heart failure. His last ejection fraction was noted per Cardiology's note of 25% to 30%. ALESSANDRA versus end-stage renal disease, on dialysis could be because of volume overload. We will get Nephrology to dialyze him in the morning. We will order an echocardiogram since the patient, I cannot see a prior echocardiogram that is ordered. 2. Lower abdominal pain. Surgery has been consulted. He does have a very large ecchymotic area. We will continue to monitor. Given his history of liver disease and low platelets and he is on aspirin and Plavix for his stents. He is at a risk of ecchymosis. We will continue to monitor. 3. End-stage renal disease, on dialysis. We will consult Nephrology. 4. Coronary artery disease. We will continue his aspirin and Plavix for now. 5. Deep venous thrombosis prophylaxis. We will put the patient on SCDs. Job ID: [id number]
[2019-09-14] MEDS ORDERED: Clopidogrel Bisulfate 75 MG TAB PO SCH (09:00)
[2019-09-14] MEDS ORDERED: Losartan 25 MG TAB PO SCH (09:00)
[2019-09-14] MEDS ORDERED: Amlodipine 10 MG TAB PO SCH (09:00)
[2019-09-14] MEDS ORDERED: Digoxin 0.125 MG TAB PO SCH (09:00)
--- NOTE | 2019-09-14 10:19 | PDOC.HOSPP ---
- Subjective Encounter Date: 09/14/19 Encounter Time: 10:18 Subjective: Mr. Vaughn was seen today in follow-up of Abdominal pain and bruising after incisional hernia repair. He denies abdominal pain today, no nausea or vomiting. His last bowel movement was yesterday and it was normal. - Objective Vital Signs & Weight: Vital Signs (12 hours) Temp Pulse Resp BP Pulse Ox 09/14/19 09:03 74 09/14/19 07:21 98.4 F 74 16 135/65 96 09/14/19 03:15 98.8 F 76 18 162/73 H 95 09/14/19 00:12 98.5 F 76 16 162/73 H 100 Weight Weight 230 lb Result Diagrams: 09/13/19 22:35 09/13/19 22:35 Hospitalist ROS - Medication Medications: Active Medications Generic Name Dose Route Start Last Admin Trade Name Freq PRN Reason Stop Dose Admin Amlodipine Besylate 10 mg 09/14/19 09:00 09/14/19 09:03 Norvasc PO 10 mg DAILY HAO Administration Clopidogrel Bisulfate 75 mg 09/14/19 09:00 09/14/19 09:02 Plavix PO 75 mg DAILY HAO Administration Digoxin 0.125 mg 09/14/19 09:00 09/14/19 09:03 Lanoxin PO 0.125 mg Q2DAYS HAO Administration Losartan Potassium 50 mg 09/14/19 09:00 09/14/19 09:03 Cozaar PO 50 mg DAILY HAO Administration Nitroglycerin 1 inch 09/14/19 06:00 09/14/19 05:48 Nitro-Bid 2% Ointment TOP 09/14/19 11:15 Not Given Q6HR HAO - Exam Eye: PERRL Heart: RRR, no murmur, no gallops, no rubs, normal peripheral pulses Respiratory: CTAB, no wheezes, no rales, no ronchi, normal chest expansion, no tachypnea, normal percussion Gastrointestinal: soft, non-tender, non-distended, normal bowel sounds, no hepatomegaly, no splenomegaly Extremities: no cyanosis, no edema Hosp A/P (1) Volume overload Code(s): E87.70 - FLUID OVERLOAD, UNSPECIFIED Status: Acute (2) Diabetes type 2, controlled Code(s): E11.9 - TYPE 2 DIABETES MELLITUS WITHOUT COMPLICATIONS Status: Chronic Qualifiers: Diabetes mellitus moth exterminator insulin use: without moth exterminator use Diabetes mellitus complication status: with unspecified complications Qualified Code(s) : E11.8 - Type 2 diabetes mellitus with unspecified complications (3) Hypertension Code(s): I10 - ESSENTIAL (PRIMARY) HYPERTENSION Status: Chronic Qualifiers: Hypertension type: essential hypertension Qualified Code(s): I10 - Essential (primary) hypertension (4) PVD (peripheral vascular disease) Code(s): I73.9 - PERIPHERAL VASCULAR DISEASE, UNSPECIFIED Status: Chronic - Plan * Volume overload- plan for dialysis today * ESRD- as above * Abdominal pain - resolved- no clinical signs of obstruction * Bruising in the flank- expected post surgery-the area was marked last night, and it has not advanced past the borders * HTN- blood pressure is stable * I suspect discharge home later today
[2019-09-14 15:11] LABS: Hep B Core Total Ab Non-Reactive (NonReactive); Hep B Surf Ag Non-Reactive S/CO (NonReactive)
[2019-09-14 15:12] LABS: Hep C IgG Ab Non-Reactive (NonReactive)
[2019-09-14 15:44] LABS: Hep B Core Total Index 0.05 S/CO (0-0.79)
[2019-09-14 15:45] LABS: HBSAg Index 0.18 S/CO (0-0.99)
[2019-09-14 15:48] LABS: Hep C Index 0.13 S/CO (0-0.79)
[2019-09-14 15:50] LABS: Hep B Surf AB Reactive (NonReactive)
[2019-09-14 15:51] LABS: HBSAB Concentration 1791.54 mIU/mL
[2019-09-14 16:17] VITALS: BP 152/70
[2019-09-14] MEDS ORDERED: Aspirin 81 mg Enteric Coated Tablet PO SCH (21:00)
[2019-09-14] MEDS ORDERED: Atorvastatin Calcium 20 MG TAB PO SCH (21:00)
--- NOTE | 2019-09-15 05:02 | DIS ---
DATE OF ADMISSION: 09/14/2019 DATE OF DISCHARGE: 09/14/2019 DISCHARGE DISPOSITION: Home. DISCHARGE DIAGNOSES: 1. Acute respiratory failure with hypoxemia. 2. Volume overload. 3. End-stage renal disease, on hemodialysis. 4. Recent incisional hernia repair. 5. Hypertension. 6. Diabetes mellitus type 2. 7. Liver cirrhosis. 8. Peripheral vascular disease. DISCHARGE MEDICATIONS: 1. Norvasc 10 mg p.o. daily. 2. Aspirin 81 mg as directed. 3. Atorvastatin 20 mg q.p.m. 4. Carvedilol 25 mg twice daily. 5. Plavix 75 mg daily. 6. Digoxin 0.125 mg every other day. 7. Marion 5/325 q.4 hours as needed. 8. Losartan 50 mg daily. 9. CoQ10 200 mg daily. IMAGING STUDIES: During the hospital stay, the patient had a CT angiogram of the chest in which there was no central pulmonary embolism. There was some free air in the abdomen likely as a result of postsurgical change. CODE STATUS: Full code. ALLERGIES: TO AZITHROMYCIN, CEFAZOLIN AND LISINOPRIL. HOSPITAL COURSE: Mr. Vaughn is a pleasant 59-year-old gentleman who recently had an incisional hernia repair. He was concerned, because he noticed some bruising in the lower abdomen. He also felt short of breath as well. For this reason, he came to the hospital and he was evaluated in the ER. CT scan of the abdomen was done, which did not show any acute findings. The area of bruising was marked and he was placed in observation and watched overnight. The area of bruising did not advance beyond the markings and in fact receded a bit. His surgeon was contacted and it was conveyed that these were expected postsurgical changes especially given the patient on aspirin and Plavix and a dialysis patient. An echocardiogram was done, however, this was pending at the time of discharge. This can be followed up with Dr. Tejinder Rizvi who the patient normally sees, this is his personal land management forester. Therefore, after being dialyzed this evening to remove the additional fluid, he will be discharged home for close followup. Job ID: [id number]
--- NOTE | 2019-09-19 10:57 | EKG ---
Test Reason : Blood Pressure : / mmHG Vent. Rate : 077 BPM Atrial Rate : 077 BPM P-R Int : 206 ms QRS Dur : 106 ms QT Int : 372 ms P-R-T Axes : 026 -15 069 degrees QTc Int : 420 ms Normal sinus rhythm Possible Anterior infarct , age undetermined Abnormal ECG Confirmed by STEFANIA COSBY, GEOFFREY Ye ([id number]), editor managing newspaper JOSEPH PIÑA ([id number]) on 09/19/2019 10:57:05 AM Referred By: Confirmed By:GEOFFREY AGUIAR MD
== END 2019-09-14 16:43 | disposition home or self-care (01) ==
LOC: ERS 22:12 → 2SW 09-14 00:21
PROVIDERS: ADMIT Internal Medicine; ATTEND Internal Medicine
DX: J96.01 Acute respiratory failure with hypoxia (principal); E87.70 Fluid overload, unspecified; I12.0 Hypertensive chronic kidney disease with stage 5 chronic kidney disease or end stage renal disease; E11.22 Type 2 diabetes mellitus with diabetic chronic kidney disease; N18.6 End stage renal disease; K74.60 Unspecified cirrhosis of liver; I73.9 Peripheral vascular disease, unspecified; Z79.82 Long term (current) use of aspirin; Z79.899 Other long term (current) drug therapy; Z88.1 Allergy status to other antibiotic agents; Z88.8 Allergy status to other drugs, medicaments and biological substances; Z99.2 Dependence on renal dialysis
CPT/HCPCS: 71045; 71275; 80053; 82553; 83880; 84484 ×3; 85025; 86704; 86706; 86803; 87340; 93005; 93306; 99285; G0378 ×2; 36415; Q9967

== ENCOUNTER 2019-10-08 13:30 | Outpatient (CLI) | payer MEDICARE ==
--- NOTE | 2019-10-08 15:06 | CT ---
CT abdomen with IV and oral contrast HISTORY: Cirrhosis. Abdominal pain. Hernia. COMPARISON: 07/06/2017. FINDINGS: Tiny subpleural nodule at the right anterolateral lung base is stable. Old bilateral lower rib fractures. Liver has a heterogeneous density with mildly nodular contour. No focal mass apparent. Gallbladder surgically absent. Spleen measures up to 17.6 cm length. Small amount of free f luid throughout the abdomen. Multiple cortical cysts of the atrophied kidneys without hydronephrosis or solid mass. There is promi nent calcification throughout the arterial structures. Prominent degenerative changes lower lumbar spine. Diverticula arise from the colon without adjacent inflammation. No evidence of bowel obstruction. Just to the left of the umbilicus, a well-circumscribed oval slightly heterogeneous fluid collection measures up to 5.1 cm length by 6.5 cm width by 3.9 cm depth. No internal bowel. It is centered within the deep subcutaneous tissue and abuts the underlying musculature. The deep margin of the flui d collection appears circumscribed and separate from the abdominal cavity. There is suggestion of a fluid fluid level within the deep portion of the fluid. The hernia and fluid on the previous exam was to the right of midline. The pelvis was not imaged. IMPRESSION: Interval operative reduction of the small bowel hernia. The fluid collection immediately to the left of the umbilicus, measuring up to 6.5 cm greatest diameter, is favored to the within the abdominal wall, primarily within the subcutaneous tissues, and not a part of a hernia. It is favo red to represent a postoperative fluid collection with a small amount of internal debris resulting in the fluid fluid level. Wall is only slightly thickened. Clinical correlation regarding clinical fi ndings of inflammation of this fluid collection is required. Moderate splenomegaly and ascites, evidence of portal venous hypertension and cirrhosis liver. Atherosclerosis.
== END 2019-10-08 13:31 | disposition home or self-care (01) ==
LOC: BICCT 13:30
PROVIDERS: ATTEND Physician Assistant Medical
DX: K74.69 Other cirrhosis of liver (principal); R18.8 Other ascites; K43.2 Incisional hernia without obstruction or gangrene; I42.0 Dilated cardiomyopathy; R16.1 Splenomegaly, not elsewhere classified; K76.6 Portal hypertension; I70.90 Unspecified atherosclerosis; Z86.010 Personal history of colon polyps; Z98.890 Other specified postprocedural states
CPT/HCPCS: 74160; Q9967

== ENCOUNTER 2021-05-12 08:07 | Outpatient (CLI) | payer MEDICARE ==
[2021-05-12] MEDS ORDERED: Iopamidol-370 76% 500 ML 1 ML ONE (11:09)
== END 2021-05-12 08:08 | disposition home or self-care (01) ==
LOC: BICCT 08:07
PROVIDERS: ATTEND Physician Assistant Medical
DX: K74.69 Other cirrhosis of liver (principal); R18.8 Other ascites; I42.0 Dilated cardiomyopathy; N18.6 End stage renal disease; K43.2 Incisional hernia without obstruction or gangrene; Z86.010 Personal history of colon polyps; R16.1 Splenomegaly, not elsewhere classified; K76.6 Portal hypertension
CPT/HCPCS: 74170; Q9967

== ENCOUNTER 2021-11-03 06:54 | Outpatient (CLI) | payer MEDICARE | END 2021-11-03 06:55 | disposition home or self-care (01) | LOC: BICULT 06:54 | PROVIDERS: ATTEND Physician Assistant Medical | DX: K74.69 Other cirrhosis of liver (principal); R18.8 Other ascites; I42.0 Dilated cardiomyopathy; N18.6 End stage renal disease; Z86.010 Personal history of colon polyps; K43.2 Incisional hernia without obstruction or gangrene; R16.1 Splenomegaly, not elsewhere classified; I50.9 Heart failure, unspecified; E78.5 Hyperlipidemia, unspecified | CPT/HCPCS: 36415; 76705; 80048; 80061; 80076; 83880 ==